=== PATIENT | female | born 1945 | race Caucasian/White ===

== ENCOUNTER → 2022-03-07 06:36 | Outpatient (CLI) | payer MEDICARE, SELFPAY ==
[2022-03-06 20:06] LABS: Basophils # 0.1 K/mm3 (0-0.2); Basophils % 1.2 % (0.1-2.0); Eosinophils # 0.1 K/mm3 (0.0-0.4); Eosinophils % 2.2 % (0.1-12.0); Hemoglobin 11.2 g/dL (12.2-16.2); Lymphocytes # 2.3 K/mm3 (0.7-4.5); Lymphocytes % 44.3 % (10-50); Mean Corpuscular HGB Conc 33.1 g/dL (31.8-35.4); Mean Corpuscular Hemoglobin 28.7 pg (27.0-31.2); Mean Corpuscular Volume 86.7 fl (81-99); Mean Platelet Volume 8.6 fl (7.4-10.4); Monocytes # 0.4 K/mm3 (0.1-1.0); Neutrophils # 2.3 K/mm3 (1.8-7.8); Neutrophils % 45.2 % (37.0-80.0); Platelet Count 208 K/mm3 (142-424); Red Blood Count 3.92 M/mm3 (4.20-5.40); Red Cell Distribution Width 13.9 % (11.5-17.5); White Blood Count 5.1 K/mm3 (4.8-10.8)
[2022-03-06 21:01] LABS: Alanine Aminotransferase 14 U/L (12-78); Albumin/Globulin Ratio 1.4 (1.1-1.8); Alkaline Phosphatase 87 U/L (38-126); Anion Gap 12.5 mEq/L (5-15); Aspartate Amino Transferase 20 U/L (14-36); Bilirubin,Total 0.2 mg/dl (0.2-1.3); Blood Urea Nitrogen 14 mg/dl (7-17); Calcium 9.2 mg/dl (8.4-10.2); Carbon Dioxide 26 mmol/L (22.0-30.0); Chloride 105 mmol/L (98-107); Chol/HDL Ratio 3.9 (1-3.5); Cholesterol 164 mg/dl (140-200); Estimated Glomerular Filt Rate 81 ml/min (>60); GFR (African American) 98 ML/MIN (>60); Globulin 2.9 g/dL (1.3-3.2); Glucose 164 mg/dl (74-100); HDL Cholesterol 42 mg/dl (40-60); Potassium 4.5 mmoL/L (3.5-5.1); Sodium 139 mmol/L (136-145); Total Protein,Serum 6.9 g/dl (6.3-8.2); Triglycerides 156 mg/dl (30-150); VLDL Cholesterol 31 mg/dL (0-40)
[2022-03-06 21:06] LABS: Hemoglobin A1C 5.9 % (4.0-6.0)
[2022-03-06 21:14] LABS: Direct LDL Cholesterol 80.85 mg/dL (100-129)
[2022-03-06 21:34] LABS: Thyroid Stimulating Hormone 1.23 uIU/mL (0.465-4.68)
== END ==
PROVIDERS: PCP Family Medicine; Visit Provider Family Medicine
DX: E11.9 Type 2 diabetes mellitus without complications (principal); E78.5 Hyperlipidemia, unspecified; Z79.84 Long term (current) use of oral hypoglycemic drugs
CPT/HCPCS: 80053; 80061; 83036; 84443; 85025

== ENCOUNTER → 2022-11-15 07:11 | Outpatient (CLI) | payer MEDICARE, SELFPAY ==
[2022-11-15 17:39] LABS: Basophils # 0.1 K/mm3 (0-0.2); Eosinophils # 0.1 K/mm3 (0.0-0.4); Eosinophils % 2.2 % (0.1-12.0); Hematocrit 35.1 % (37.0-47.0); Hemoglobin 11.3 g/dL (12.2-16.2); Lymphocytes # 2.2 K/mm3 (0.7-4.5); Lymphocytes % 46.5 % (10-50); Mean Corpuscular HGB Conc 32.1 g/dL (31.8-35.4); Mean Corpuscular Hemoglobin 29.1 pg (27.0-31.2); Mean Corpuscular Volume 90.9 fl (81-99); Mean Platelet Volume 8.7 fl (7.4-10.4); Monocytes # 0.3 K/mm3 (0.1-1.0); Monocytes % 7.1 % (1.7-9.3); Neutrophils # 2.1 K/mm3 (1.8-7.8); Neutrophils % 43.1 % (37.0-80.0); Platelet Count 221 K/mm3 (142-424); Red Blood Count 3.86 M/mm3 (4.20-5.40); Red Cell Distribution Width 13.5 % (11.5-17.5); White Blood Count 4.8 K/mm3 (4.8-10.8)
[2022-11-15 18:22] LABS: Chloride 102 mmol/L (98-107); Sodium 136 mmol/L (136-145)
[2022-11-15 18:23] LABS: Potassium 4.7 mmoL/L (3.5-5.1)
[2022-11-15 18:25] LABS: Alanine Aminotransferase 13 U/L (12-78); Albumin Level 3.9 g/dl (3.5-5.0); Albumin/Globulin Ratio 1.3 (1.1-1.8); Alkaline Phosphatase 77 U/L (38-126); Anion Gap 10.7 mEq/L (5-15); Aspartate Amino Transferase 18 U/L (14-36); Bilirubin,Total 0.4 mg/dl (0.2-1.3); Blood Urea Nitrogen 19 mg/dl (7-17); Carbon Dioxide 28 mmol/L (22.0-30.0); Estimated Glomerular Filt Rate 97 ml/min (>60); GFR (African American) 117 ML/MIN (>60); Globulin 2.9 g/dL (1.3-3.2); Total Protein,Serum 6.8 g/dl (6.3-8.2)
[2022-11-15 18:26] LABS: Glucose 213 mg/dl (74-100)
[2022-11-15 18:43] LABS: Microalbumin/Creatinine Ratio 11.9
[2022-11-15 18:44] LABS: Creatinine,Urine Random 114 mg/dL (Not Estab.); Hemoglobin A1C 9.9 % (4.0-6.0)
== END ==
PROVIDERS: PCP Family Medicine; Visit Provider Family Medicine
DX: E11.9 Type 2 diabetes mellitus without complications (principal); Z79.84 Long term (current) use of oral hypoglycemic drugs
CPT/HCPCS: 80053; 82043; 82570; 83036; 85025

== ENCOUNTER → 2023-02-27 10:13 | Outpatient (POV) | payer MEDICARE, SELFPAY | PROVIDERS: Visit Provider Specialist/Technologist | DX: Z00.00 Encounter for general adult medical examination without abnormal findings (principal) ==

== ENCOUNTER → 2023-03-14 10:09 | Outpatient (CLI) | payer MEDICARE, BC, SELFPAY ==
--- NOTE | 2023-03-14 10:09 | MR_ITS ---
FINAL REPORT TECHNIQUE: Multiplanar MR without contrast. Thin section imaging through the posterior fossa/internal auditory canals was also obtained. CLINICAL HISTORY: to r/o acoustic neuroma. hearing loss and tinnitus bilateral ears. right ear worse. FINDINGS: Diffusion sequences show no signal abnormality to indicate acute infarct. Scattered periventricular white matter signal changes are seen compatible with moderate chronic ischemic gliotic disease. Moderate generalized atrophy is present. No mass, hemorrhage or edema is seen. Ventricles are normal. Major vascular flow voids are intact. CP angles are unremarkable. 7th and 8th cranial nerve complexes are normal. IMPRESSION: 1. No mass, acute infarct or hydrocephalus 2. Atrophy and chronic ischemic white matter changes Reviewed, Interpreted and Dictated by Bandar Landry MD Transcribed by Rehana Malagon Authenticated and [facility]
== END ==
PROVIDERS: PCP Family Medicine; Visit Provider Nurse Practitioner
DX: H72.91 Unspecified perforation of tympanic membrane, right ear (principal); H91.91 Unspecified hearing loss, right ear
CPT/HCPCS: 70551

== ENCOUNTER 2023-08-23 08:07 | Outpatient (CLI) | payer MEDICARE, BC, SELFPAY ==
[2023-08-23 16:54] LABS: Chloride 106 mmol/L (98-107); Potassium 4.6 mmoL/L (3.5-5.1); Sodium 139 mmol/L (136-145)
[2023-08-23 16:56] LABS: Alanine Aminotransferase 15 U/L (12-78); Aspartate Amino Transferase 22 U/L (14-36); Blood Urea Nitrogen 16 mg/dl (7-17); Estimated Glomerular Filt Rate 81 ml/min (>60); GFR (African American) 98 ML/MIN (>60)
[2023-08-23 16:57] LABS: Albumin Level 4.1 g/dl (3.5-5.0); Albumin/Globulin Ratio 1.5 (1.1-1.8); Alkaline Phosphatase 85 U/L (38-126); Anion Gap 12.6 mEq/L (5-15); Bilirubin,Total 0.5 mg/dl (0.2-1.3); Carbon Dioxide 25 mmol/L (22.0-30.0); Chol/HDL Ratio 4.5 (1-3.5); Cholesterol 190 mg/dl (140-200); Globulin 2.8 g/dL (1.3-3.2); Glucose 192 mg/dl (74-100); HDL Cholesterol 42 mg/dl (40-60); Total Protein,Serum 6.9 g/dl (6.3-8.2); Triglycerides 150 mg/dl (30-150); VLDL Cholesterol 30 mg/dL (0-40)
[2023-08-23 17:04] LABS: Basophils % 0.6 % (0.1-2.0); Eosinophils # 0.1 K/mm3 (0.0-0.4); Eosinophils % 2.3 % (0.1-12.0); Hematocrit 35.4 % (37.0-47.0); Hemoglobin 11.4 g/dL (12.2-16.2); Lymphocytes # 2.1 K/mm3 (0.7-4.5); Lymphocytes % 39.3 % (10-50); Mean Corpuscular HGB Conc 32.3 g/dL (31.8-35.4); Mean Corpuscular Hemoglobin 29.3 pg (27.0-31.2); Mean Corpuscular Volume 90.8 fl (81-99); Mean Platelet Volume 9.1 fl (7.4-10.4); Monocytes # 0.4 K/mm3 (0.1-1.0); Monocytes % 6.9 % (1.7-9.3); Neutrophils # 2.7 K/mm3 (1.8-7.8); Platelet Count 214 K/mm3 (142-424); White Blood Count 5.3 K/mm3 (4.8-10.8)
[2023-08-23 17:08] LABS: Direct LDL Cholesterol 97.34 mg/dL (100-129)
== END 2023-08-23 23:59 ==
LOC: LAB.DROPOF 08-24 08:10
PROVIDERS: PCP Family Medicine; Visit Provider Family Medicine
DX: E11.9 Type 2 diabetes mellitus without complications (principal); Z79.84 Long term (current) use of oral hypoglycemic drugs; Z79.85 Long-term (current) use of injectable non-insulin antidiabetic drugs
CPT/HCPCS: 80053; 80061; 83036; 85025

== ENCOUNTER 2024-01-15 09:28 | Outpatient (CLI) | payer MEDICARE, BC, OTHER, SELFPAY ==
[2024-01-15 16:35] LABS: Basophils % 0.5 % (0.1-2.0); Eosinophils # 0.1 K/mm3 (0.0-0.4); Eosinophils % 2.1 % (0.1-12.0); Hematocrit 33.2 % (37.0-47.0); Hemoglobin 10.4 g/dL (12.2-16.2); Lymphocytes # 2.1 K/mm3 (0.7-4.5); Lymphocytes % 45.2 % (10-50); Mean Corpuscular HGB Conc 31.4 g/dL (31.8-35.4); Mean Corpuscular Hemoglobin 28.2 pg (27.0-31.2); Mean Corpuscular Volume 89.8 fl (81-99); Mean Platelet Volume 8.9 fl (7.4-10.4); Monocytes # 0.3 K/mm3 (0.1-1.0); Monocytes % 6.9 % (1.7-9.3); Neutrophils # 2.1 K/mm3 (1.8-7.8); Neutrophils % 45.2 % (37.0-80.0); Platelet Count 221 K/mm3 (142-424); Red Blood Count 3.69 M/mm3 (4.20-5.40); Red Cell Distribution Width 15.1 % (11.5-17.5); White Blood Count 4.6 K/mm3 (4.8-10.8)
[2024-01-15 17:38] LABS: Hemoglobin A1C 9.9 % (4.0-6.0)
== END 2024-01-15 23:59 | disposition home or self-care (01) ==
LOC: LAB.DROPOF 01-17 09:29
PROVIDERS: PCP Family Medicine; Visit Provider Family Medicine
DX: E11.9 Type 2 diabetes mellitus without complications (principal); Z79.4 Long term (current) use of insulin
CPT/HCPCS: 83036; 85025

== ENCOUNTER 2024-12-18 11:04 | Outpatient (CLI) | payer MEDICARE, BC, SELFPAY | END 2024-12-18 23:59 | disposition home or self-care (01) | LOC: LAB.DROPOF 12-21 11:05 | PROVIDERS: PCP Nurse Practitioner Family; Visit Provider Nurse Practitioner Family | DX: N39.0 Urinary tract infection, site not specified (principal); B96.20 Unspecified Escherichia coli [E. coli] as the cause of diseases classified elsewhere | CPT/HCPCS: 87086; 87088; 87186 ==

== ENCOUNTER 2025-01-27 09:12 | Outpatient (CLI) | payer MEDICARE, BC, SELFPAY ==
[2025-01-27 16:55] LABS: Basophils # 0.1 K/mm3 (0-0.2); Eosinophils # 0.1 Kmm3 (0.0-0.4); Eosinophils % 2.8 % (0.1-12.0); Hemoglobin 8.7 g/dL (12.2-16.2); Immature Granulocytes # 0.01 10^3uL; Immature Granulocytes % 0.2 %; Lymphocytes # 1.9 K/mm3 (0.7-4.5); Lymphocytes % 39.1 % (10-50); Mean Corpuscular HGB Conc 31.1 g/dL (31.8-35.4); Mean Corpuscular Hemoglobin 24.9 pg (27.0-31.2); Mean Platelet Volume 10.3 fl (7.4-10.4); Monocytes # 0.5 K/mm3 (0.1-1.0); Monocytes % 9.3 % (1.7-9.3); Neutrophils # 2.4 K/mm3 (1.8-7.8); Neutrophils % 47.6 % (37.0-80.0); Nucleated Red Blood Cells # 0 10^3/uL; Nucleated Red Blood Cells % 0 %; Platelet Count 228 K/mm3 (142-424); Red Cell Distribution Width-SD 46.2 fL
[2025-01-27 17:07] LABS: Microalbumin/Creatinine Ratio 14.8
[2025-01-27 17:13] LABS: Albumin Level 4.1 g/dl (3.5-5.0); Chloride 106 mmol/L (98-107); Sodium 136 mmol/L (136-145)
[2025-01-27 17:14] LABS: Potassium 5.1 mmoL/L (3.5-5.1)
[2025-01-27 17:16] LABS: Alanine Aminotransferase 15 U/L (12-78); Albumin/Globulin Ratio 1.5 (1.1-1.8); Alkaline Phosphatase 80 U/L (38-126); Anion Gap 10.1 mEq/L (5-15); Aspartate Amino Transferase 22 U/L (14-36); Bilirubin,Total 0.3 mg/dl (0.2-1.3); Blood Urea Nitrogen 18 mg/dl (7-17); Carbon Dioxide 25 mmol/L (22.0-30.0); Cholesterol 209 mg/dl (140-200); Creatinine,Urine Random 74 mg/dL (Not Estab.); Estimated Glomerular Filt Rate 81 ml/min (>60); GFR (African American) 98 ML/MIN (>60); Globulin 2.7 g/dL (1.3-3.2); Iron 58 ug/dL (37-170); Total Protein,Serum 6.8 g/dl (6.3-8.2); Triglycerides 183 mg/dl (30-150); VLDL Cholesterol 37 mg/dL (0-40)
[2025-01-27 17:17] LABS: Calcium 9.3 mg/dl (8.4-10.2); Chol/HDL Ratio 4.2 (1-3.5); Glucose 285 mg/dl (74-100); HDL Cholesterol 50 mg/dl (40-60)
[2025-01-27 17:24] LABS: Total Iron Binding Capacity 380 ug/dL (265-497)
[2025-01-27 17:28] LABS: Direct LDL Cholesterol 95.71 mg/dL (100-129)
[2025-01-27 17:47] LABS: Thyroid Stimulating Hormone 2.55 uIU/mL (0.465-4.68)
[2025-01-27 19:05] LABS: Hepatitis C Ab Qual. W/ RFX NEGATIVE (Negative)
[2025-01-27 19:12] LABS: Hemoglobin A1C 11.4 % (4.0-6.0)
[2025-01-28 04:36] LABS: HIV Combo NEGATIVE (Negative)
[2025-01-28 07:16] LABS: Hepatitis B Surface Antigen Negative (Negative)
--- OUTSIDE RECORDS SUMMARY | 2025-01-28 09:19 | XMS_ITS | Encounter Summary ---
Author Organization [employer] Address [address] [place] [address] Care Team Providers Care Topline Beading Machine Tender Name Role Phone Scott Main MD Primary Care Provider [phone]- [phone] Encounter Details Date Type Department Care Team (Late st Contact Info) Description 02/04/2019 Transcribed Document [facility] [place] [address] [place] [address] ProviderAurea MD [address] [id number] Social History Tobacco Use Types Packs/Day Years Used Date Smoking Tobacco: Never Assessed Comments Unknown Sex and Gender Information Value Date Recorded Sex Assigned at Not on file Legal Sex Female 3:56 PM CDT Gender Identity Not on file Sexual Orientation Not on file documented as of this encounter Miscellaneous Notes * Cerner Conversion Note - Aurea Delgado MD - 02/04/2019 7:40 AM CDT Advance Directive Entered On: 02/04/2019 10:05 EDT Performed On: 02/04/2019 7:40 EDT by DIANNA WITT Chaplain-Non Cert Advance Directive Patient has Advance Directive *Q : No, patient requests information about Advance Directive Patient Given Information about AD : Yes Advance Directive Comment : AD information provided by the endoscopy nursing staff. DIANNA WITT Chaplain-Non Cert - 02/04/2019 10:04 EDT documented in this encounter Plan of Treatment Not on file documented as of this encounter Visit Diagnoses Not on filedocumented in this encounter Care Teams Topline Beading Machine Tender Relationship Specialty Start Date End Date Scott Main MD [address] [place] [address] PCP - General Family Medicine 03/29/24 documented as of this encounter
--- OUTSIDE RECORDS SUMMARY | 2025-01-28 09:19 | XMS_ITS | Encounter Summary ---
Author Organization [employer] Address [address] [place] [address] Care Team Providers Care Accessibility Lift Technician Name Role Phone Scott Main MD Primary Care Provider [phone]- [phone] Encounter Details Date Type Department Care Team (Late st Contact Info) Description 02/04/2019 Transcribed Document [facility] [place] [address] [place] [address] ProviderAurea MD [place] [address] Social History Tobacco Use Types Packs/Day Years Used Date Smoking Tobacco: Never Assessed Comments Unknown Sex and Gender Information Value Date Recorded Sex Assigned at Not on file Legal Sex Female 3:56 PM CDT Gender Identity Not on file Sexual Orientation Not on file documented as of this encounter Miscellaneous Notes * Cerner Conversion Note - Aurea Delgado MD - 02/04/2019 7:33 AM CDT Pre Procedure Adult Entered On: 02/04/2019 7:39 EDT Performed On: 02/04/2019 7:33 EDT by Idalmis Etienne RN Height and Weight, Clinical Dosing Height Source : Stated Height Entry Format : [place] Height, Feet : 5 ft(Converted to: 152 cm, 60 Inch) Height, Inches : 6 Inch(Converted to: 0 ft 6 Inch, 15.24 cm) Clinical Height : 167.64 cm Weight Source : Standing scale Weight Entry Format : [place] Clinical Dosing Weight : 74.09 kg Weight, Pounds : 163 lb Body Surface Area (BSA) : 1.84 m2 Body Mass Index : 26.4 kg/m2 (HI) [place] Body Weight : 59 kg Idalmis Etienne RN - 02/04/2019 7:33 EDT Health Histories Smoking Status : Never (less than 100 in lifetime; none in last 30 days) Smokeless Tobacco Status : Never Idalmis Etienne RN - 02/04/2019 7:33 EDT Social History (As Of: 02/04/2019 07:39:19 EDT) Tobacco: Never (less than 100 in lifetime) Smoking Status. (Last Updated: 02/04/2019 07:29:53 EDT by Idalmis Etienne, RN) Alcohol: Alcohol Use History No. (Last Updated: 02/04/2019 07:30:00 EDT by Idalmis Etienne, RN) Nutrition/Health: Caffeine intake amount: 4 cups coffee/day. (Last Updated: 02/04/2019 07:30:16 EDT by Idalmis Etienne, RN) Infectious Disease History Infectious Disease History : Chicken pox/Shingles, Influenza, Measles, Mumps Fever/Chills Last 48 Hours : No Travel To Regions with Travel Advisories : No Travel Outside [place] Within Last 30 Days : No Contact With Traveler to Advisory Region : No Tuberculosis Symptoms : None Idalmis Etienne RN - 02/04/2019 7:33 EDT Anesthesia/Transfusion History Family History of Anesthesia Reaction : Prior transfusion without reaction Transfusion History : Prior anesthesia without reaction Family History of Anesthesia Reaction : None Idalmis Etienne RN - 02/04/2019 7:33 EDT Functional Assessment Living Situation : Home Patient Lives With : Adult Child/Children, Spouse Current Home Treatments : None Idalmis Etienne RN - 02/04/2019 7:33 EDT Psychosocial History Currently in Unsafe Situation : No Tried to Harm Yourself in the Past? : No Thoughts of Harming/Killing Yourself : No Idalmis Etienne RN - 02/04/2019 7:33 EDT Advance Directive Patient has Advance Directive *Q : No, patient requests information about Advance Directive Patient Given Information about AD : Yes Idalmis Etienne RN - 02/04/2019 7:33 EDT Teaching/Learning Assessment Barriers To Learning : None evident Individuals Taught : Patient Readiness to Learn : Cooperative Baseline Knowledge of Topic : Good Readiness to Learn : Explanation Learning Style Preferences Patient : None Learning Style Preferences Family : None Idalmis Etienne RN - 02/04/2019 7:33 EDT General Info Want Family/Rep/Phys Notified of Admit : No Emergency Contact #1 : Brayan Velasquez Emergency Contact #1 Emergency Contact #1 Relationship : spouse Emergency Contact #2 : na Emergency Contact #2 Phone Number : lety Emergency Contact #2 Relationship : na Primary Language : Cypriot Communication Barrier : None Idalmis Etienne RN - 02/04/2019 7:33 EDT Sleep Apnea Risk Assmt Hx of Obstructive Sleep Apnea Diagnosis : No Snore Loudly : No Tired, Fatigued, or Sleepy During Day : Yes Observed Stopping Breathing During Sleep : No Have/Are Being Treated for Hypertension : Yes BMI Greater Than 35 kg/m2 : No Age over 50 Years Old : Yes Neck Circumference Greater Than 40 cm : No Gender Male : No STOP-BANG Sleep Apnea Risk Level Score : 3 Idalmis Etienne RN - 02/04/2019 7:33 EDT Dequan Scale Dequan Sensory Perception : No impairment Dequan Moisture : Rarely moist Dequan Activity : Walks frequently Dequan Mobility : No limitation Dequan Nutrition : Excellent Dequan Friction and Shear : No apparent problem Dequan Score : 23 Idalmis Etienne RN - 02/04/2019 7:33 EDT Fall Risk Scales ABCs Fall Injury Risk Identification : None QUINTERO Hx Falls Immediate/Within 3 Months : No Quintero Secondary Diagnosis : No QUINTERO Use of Ambulatory Aid : None QUINTERO IV Therapy or IV Access : Yes Quintero Gait/Transferring : Normal, bedrest, immobile Quintero Mental Status : Oriented to own ability Quintero Fall Risk Score : 20 QUINTERO Fall Scale Risk Level : 0-24 Low Risk [place] Fall Interventions : Adequate lighting, Bed in low position, Call device within reach, Personal items within reach, Reinforced to call for assistance before getting out of bed, Room free of clutter/spills, Upper side-rails up, Wheels locked, Wires/Cords secured Idalmis Etienne RN - 02/04/2019 7:33 EDT Valuables and Belongings Valuables and Belongings : Clothing, Personal devices Clothing : Common streetwear Clothing Disposition : Bedside Personal Device Disposition : Bedside Personal Devices : Glasses Idalmis Etienne RN - 02/04/2019 7:33 EDT documented in this encounter Plan of Treatment Not on file documented as of this encounter Visit Diagnoses Not on filedocumented in this encounter Care Teams Accessibility Lift Technician Relationship Specialty Start Date End Date Scott Main MD [address] [place] [address] PCP - General Family Medicine 03/29/24 documented as of this encounter
--- OUTSIDE RECORDS SUMMARY | 2025-01-28 09:19 | XMS_ITS | Referral Summary ---
Author Organization [employer] Address [address] [place] [address] Care Team Providers Care Director Medical Science Name Role Phone Scott Main MD Primary Care Provider +1- [phone] Allergies Active Allergy Reactions Criticality Noted Date Comments Codeine Nausea And Vomiting 03/29/2024 Medications metFORMIN (GLUCOPHAGE-XR ) 500 MG 24 hr tablet Take 1 tablet (500 mg total) by mouth 2 (two) times daily with breakfast and dinner. Active lisinopriL (PRINIVIL,ZEST RIL) 20 MG tablet Take 1 tablet (20 mg total) by mouth daily. Active esomeprazole (NexIUM) 40 MG capsule Take 1 capsule (40 mg total) by mouth daily. Active SITagliptin phosphate (JANUVIA) 100 MG tablet Take 1 tablet (100 mg total) by mouth daily. Active insulin glargine (Lantus Solostar U-100 Insulin) 100 unit/mL (3 mL) InPn Inject 20 Units subcutaneously nightly. Active glipiZIDE (GLUCOTROL XL) 10 MG 24 hr tablet Take 1 tablet (10 mg total) by mouth 2 (two) times daily with breakfast and dinner. Active venlafaxine (EFFEXOR-XR) 75 MG 24 hr capsule Take 1 capsule (75 mg total) by mouth daily. Active Active Problems Problem Noted Date Diagnosed Date Anemia 03/31/2024 03/31/2024 GERD (gastroesophageal reflux disease) 03/31/2024 PUD (peptic ulcer disease) 03/31/202403/31 Severe sepsis 03/29/2024 Hypertension Diabetes mellitus Social History Tobacco Use Types Packs/Day Years Used Date Smoking Tobacco: Never Smokeless Tobacco: Never Tobacco Cessation:Counseling Given: Not Answered Alcohol Use Standard Drinks/Week Comments Never 0 (1 standard drink = 0.6 oz pur e alcohol) Utilities Answer Date Recorded In the past 12 months, has t he electric, gas, oil, or water company threatened to shut off services in your home? No 03/29/2024 Interpersonal Safety Answer Date Record ed How often does anyone, cat burden family and friends, physically hurt you? Never 03/29/2024 How often does anyone, cat burden family and friends, insult or talk down to you? Never 03/29/2024 How often does anyone, cat burden family and friends, threaten you with harm? Never 03/29/2024 How often does anyone, cat burden family and friends, scream or curse at you? Never 03/29/2024 Housing Stability Answer Date Recorded What is your living situation today? I have a [facility] place to live 03/29/[address] you li ve. Do you have problems with any of the following? None of the above 03/29/2024 Food Insecurity Answer Date Recorded Within the past 12 months, y ou worried that your food would run out before you got money to buy more. Never true 03/29/2024 Within the past 12 months, t he food you bought just didn't last and you didn't have money to get more. Never true 03/29/2024 Transportation Needs Answer Date Record ed In the past 12 months, has l ack of reliable transportation kept you from medical appointments, meetings, work or from getting things needed for daily living? No 03/29/2024 Financial Resource Strain Answer Date R ecorded How hard is it for you to pa y for the very basics like food, housing, medical care, and heating? Would you say it is: Very hard 03/30/2024 Employment Answer Date Recorded Do you want help finding or keeping work or a job? I do not need or want help 03/29/2024 Family and Community Support Answer Carlos e Recorded If for any reason you need h elp with day-to-day activities such as bathing, preparing meals, shopping, managing finances, etc., do you get the help you need? I don't need any help 03/29/2024 Feeling Lonely or Isolated 0 03/29 Educational Attainment Answer Date Brian rded Do you speak a language other than Hungarian at [facility]? No 03/29/2024 Do you want help with school or training? For example, starting or completing job training or getting a high school diploma, GED or equivalent. No 03/29/2024 Physical Activity Answer Date Recorded Number of minutes of exercise per week 120 03/29/2024 Alcohol Use Answer Date Recorded 5 or More Drinks Per Day Past 12 Months 0 2024 Depression Answer Date Recorded Calculation of above two rows 0 Stress Answer Date Recorded Stress means a situation in which a person feels tense, restless, nervous, or anxious, or is unable to sleep at night because his or her mind is troubled all the time. Do you feel this kind of stress these days? Somewhat 03/29/2024 Disabilities Answer Date Recorded Because of a physical, menta l, or emotional condition, do you have serious difficulty concentrating, remembering, or making decisions? (5 years or older) No 03/29/2024 Because of a physical, menta l, or emotional condition, do you have difficulty doing errands alone such as visiting a doctor's office or shopping? (15 years or older) No 03/29/2024 Substance Use Answer Date Recorded How many times in the past y ear have you used prescription drugs for non-medical reasons? Never 03/29/2024 How many times in the past year have you used il legal drugs? Never 03/29/2024 Comments Unknown Sex and Gender Information Value Date Recorded Sex Assigned at Not on file Legal Sex Female 3:56 PM CDT Gender Identity Not on file Sexual Orientation Not on file Last Filed Vital Signs Vital Sign Reading Time Taken Comments Blood Pressure 96/74 04/02/2024 3:05 PM EDT Pulse 86 04/02/2024 3:05 PM EDT Temperature 36.9 C (98.4 F) 04/02/2024 3:05 PM EDT Respiratory Rate 16 04/02/2024 3:05 PM EDT Oxygen Saturation 98% 04/02/2024 3:05 PM EDT Inhaled Oxygen Concentration - - Weight 67.1 kg (148 lb) 03/31/2024 9:40 PM EDT Height 167.6 cm (5' 5.98 ) 03/31/2024 9:40 PM ED T Body Mass Index 23.9 03/31/2024 9:40 PM EDT Plan of Treatment Not on file Medical Devices Implanted Type Area Oral And Maxillofacial Surgery Resident Device Identifier Shelf Expiration Date Model / Serial / Lot Stent Uret Percflx 6x24 .038 [id number] - [id number] Implanted:Qty : 1 on 03/31/2024 by Colton Alejandre Jr., MD at [facility] IMPLANTS Left: Ureter [employer]:UROLOGY/GYNE COLOGY 10/21/2026 [id number] / / [id number] Procedures Procedure Name Priority Date/Time Associated Diagnosis Comments HEMOGLOBIN A1C Add-On 03/29/2024 3:19 PM EDT from Last 3 Months or Most Recently Relevant to Health Maintenance Results * (ABNORMAL) Hemoglobin A1c (03/29/2024 3:19 PM EDT) Hemoglobin A1C 10.7(H) 4.2 - 6.3 % 03/29/2024 3:40 PM EDT [facility] Comment: Hemoglobin A1C levels are related to mean glucose during the preceding 2-3 months. Less than 7% demonstrates glycemic control in diabetic patients. Hemoglobin AlC % Suggested Diagnosis > or = 6.5 Diabetic 5.7 - 6.4 Prediabetic <5.7 Non-diabetic eAVG Glucose 260.39 mg/dL 03/29/2024 3:40 PM EDT [facility] Blood Venipuncture / Unknown 03/29/2024 3:19 PM EDT 03/29/2024 3:19 PM EDT us Fernnado Fritz MD LAB BLOOD ORDERABLES Final R esult [facility] [address] [phone] from Last 3 Months or Most Recently Relevant to Health Maintenance Insurance [address] [place] [address] [address] MEDICARE PART A B SUPPL Advance Directives For more information, please contact: [phone] * Full Code (Latest Code Status on File) Date Activated Date Inactivated Comments 03/29/2024 1:17 PM 04/02/2024 6:02 PM Care Teams Director Medical Science Relationship Specialty Start Date End Date Scott Main MD [address] [place] [address] PCP - General Family Medicine 03/29/24
--- OUTSIDE RECORDS SUMMARY | 2025-01-28 09:19 | XMS_ITS | Encounter Summary ---
Author Organization [employer] Address [address] [place] [address] Care Team Providers Care Detective Name Role Phone Scott Main MD Primary Care Provider +1- [phone] Encounter Details Date Type Department Care Team (Late st Contact Info) Description 02/04/2019 Transcribed Document [facility] [place] [facility] [place] [address] ProviderAurea MD [address] [place] [id number] Social History Tobacco Use Types Packs/Day Years Used Date Smoking Tobacco: Never Assessed Comments Unknown Sex and Gender Information Value Date Recorded Sex Assigned at Not on file Legal Sex Female 3:56 PM CDT Gender Identity Not on file Sexual Orientation Not on file documented as of this encounter Miscellaneous Notes * Cerner Conversion Note - Aurea Delgado MD - 02/04/2019 7:18 AM CDT Patient: JAKOB QUINONES Age: 73 years Sex: Female : 1945 Associated Diagnoses: None Author: ASHELY SOTO MD-AZAnnie Basic Information Source of history: Self. Joss Maldonado MD Chief Complaint Screening colonoscopy, family history of colon cancer. History of Present Illness Patient presents today for a screening colonoscopy. Denies any gastrointestinal complaints. Specifically denies rectal bleeding, weight loss, or change in bowel habits. Sister with history of colon cancer over age 50. Denuies ASA. Takes Ibuprofen rarely. Last colonoscopy 08/[address] Ashely Soto, findings: Two sessile polyps in the cecum, measuring 4mm and 6mm,( Tubular adenoma) Single pedunculated polyp in the transverse colon measuring 8mm,( Tubular adenoma) Single sessile polyp in the sigmoid measuring 6mm, ( fragments of mucinous debris and degenerated vegetable matter, no tissue identified), Single pedunculated polyp in the rectum, measuring 1 cm, ( vegetable matter, no tissue) Colon random biopsy: mild non specific chronic inflammation and edema. Histories Past Medical History: Active Diabetes mellitus (922877336) Lupus (103746518) Anemia (491543425) Hypertension (4557283167) Anxiety (51820763) GERD (gastroesophageal reflux disease) (542507220) Resolved h/o DVT (deep venous thrombosis) (828962312): Resolved. Procedure history: No active procedure history items have been selected or recorded. Social History Social & Psychosocial Habits Alcohol 02/04/2019 Alcohol Use History, Social Habits No Nutrition/Health 02/04/2019 Caffeine intake amount: 4 cups coffee/day Tobacco 02/04/2019 Smoking Status Never (less than 100 in l . Family History: Sister with history of colon cancer over age 50. Health Status Allergies: Allergic Reactions (All) Severity Not Documented Codeine- N&v - nausea and vomiting and n&v - nausea and vomiting., No qualifying data available Current medications: (Selected) Inpatient Medications Ordered Normal Saline 1,000 mL: 125 mL/Hr, IntraVENous Documented Medications Documented Januvia 50 mg oral tablet: Tab, Oral, Daily, 0 Refill(s) NexIUM 40 mg oral delayed release capsule: Cap, Oral, Daily, 0 Refill(s) Vitamin D3: 50,000 Int Units, Oral, Weekly, 0 Refill(s) ferrous sulfate 325 mg (65 mg elemental iron) oral delayed release tablet: Tab, Oral, Daily, 0 Refill(s) glipiZIDE 10 mg oral tablet: Tab, Oral, Daily, 0 Refill(s) lisinopril 20 mg oral tablet: Tab, Oral, Daily, 0 Refill(s) metFORMIN 500 mg oral tablet: Tab, Oral, TID, 0 Refill(s) venlafaxine 75 mg oral capsule, extended release: Cap, Oral, Daily, 0 Refill(s), Medications (1) Active Scheduled: (0) Continuous: (1) NaCl 0.9% 1,000 mL 1,000 mL, IntraVENous, 125 mL/Hr PRN: (0) Problem list: All Problems Anemia / SNOMED CT 984023273 / Confirmed Anxiety / SNOMED CT 24803116 / Confirmed At risk for sleep apnea / IMO [id number] / Confirmed Diabetes mellitus / SNOMED CT 908281391 / Confirmed GERD (gastroesophageal reflux disease) / SNOMED CT 925358497 / Confirmed Hypertension / SNOMED CT 1924421726 / Confirmed Lupus / SNOMED CT 971727801 / Confirmed Resolved: h/o DVT (deep venous thrombosis) / SNOMED CT 019356772, Active Problems (7) Anemia Anxiety At risk for sleep apnea Diabetes mellitus GERD (gastroesophageal reflux disease) Hypertension Lupus Review of Systems Constitutional: No fever, No chills, No weight gain, No weight loss. Eye: No recent visual problem, No blurring. Ear/Nose/Mouth/Throat: No dysphagia, No epistaxis, No hoarse voice, No sore throat. Respiratory: No shortness of breath, No cough, No hemoptysis. Cardiovascular: No chest pain, No palpitations, No claudication. Gastrointestinal Negative other than HPI. Genitourinary: No dysuria, No hematuria. Hematology/Lymphatics: No bruising tendency, No bleeding tendency. Endocrine: No excessive thirst, No cold intolerance, No heat intolerance. Musculoskeletal: No joint pain, No muscle pain, No gait disturbance, No joint redness. Integumentary: No rash, No pruritus. Neurologic: No confusion, No dizziness, No headache, No seizure. Psychiatric: No anxiety, No depression. the rest of the 10 system review is negative Physical Examination VS/Measurements Vitals Signs (last 24 hrs) Last Charted Minimum Maximum Temp 98.4 (FEB 04 07:00) 98.4 (FEB 04 07:00) 98.4 (FEB 04 07:00) Mon HR 78 (FEB 04 07:00) 78 (FEB 04 07:00) 78 (FEB 04 07:00) Resp Rate 18 (FEB 04 07:00) 18 (FEB 04 07:00) 18 (FEB 04 07:00) SBP H 192 (FEB 04 07:00) H 192 (FEB 04 07:00) H 192 (FEB 04:00) DBP 85 (FEB 04 07:00) 85 (FEB 04 07:00) 85 (FEB 04 07:00) SpO2 99 (FEB 04 07:) 99 (FEB 04 07:00) 99 (FEB 04:) General: No acute distress. Appearance: Well nourished. Eye: Pupils are equal, round and reactive to light, Extraocular movements are intact, Normal conjunctiva. Sclera: Both eyes, Within normal limits. HENT: Normocephalic, Normal hearing, Oral mucosa is moist. Nose: Both nostrils, Within normal limits, Patent. Mouth: pink. Neck: Supple, Non-tender, No carotid bruit, No jugular venous distention. Respiratory: Lungs are clear to auscultation, Respirations are non-labored, Breath sounds are equal. Pattern: Regular. Cardiovascular: Normal rate, Regular rhythm, No murmur, No gallop, No edema. Arterial pulses: Bilateral, Dorsalis pedis, Within normal limits. Gastrointestinal: Soft, Non-tender, Non-distended, Normal bowel sounds, No organomegaly. Abdomen: Liver ( Within normal limits ). Lymphatics: Lymphatic exam: Bilateral, Cervical chain, Inguinal, Within normal limits. Musculoskeletal: Normal range of motion, Normal strength, No tenderness, No deformity, Normal gait. Integumentary: Warm, Dry, [place], No rash. Integumentary exam: Face, Chest, Arm, Abdomen, Leg. Neurologic: Alert, Oriented, No focal deficits. Orientation: To person, To place, To time. Psychiatric: Cooperative, Appropriate mood & affect, Normal judgment. Review / Management Results review: No qualifying data available. Impression and Plan Colon screening. Proceed with colonoscopy. Risks including that of bleeding, perforation, splenic injury, and missed lesion have been discussed with patient who verbalizes understanding and agrees to proceed. Further recommendations dong be based on the above findings. Family history of colon cancer. Scribed by Rui Nathan for Dr. Ashely Soto. documented in this encounter Plan of Treatment Not on file documented as of this encounter Visit Diagnoses Not on filedocumented in this encounter Care Teams Detective Relationship Specialty Start Date End Date Scott Main MD [address] [place] [address] PCP - General Family Medicine 03/29/24 documented as of this encounter
--- OUTSIDE RECORDS SUMMARY | 2025-01-28 09:19 | XMS_ITS | Encounter Summary ---
Author Organization [employer] Address [address] [facility] [place] [address] Care Team Providers Care Surgical Scrub Tech Name Role Phone Scott Main MD Primary Care Provider +1- [phone] Encounter Details Date Type Department Care Team (Late st Contact Info) Description 02/04/2019 Transcribed Document [facility] [place] [address] [place] [address] ProviderAurea MD [facility] [place] [address] Social History Tobacco Use Types Packs/Day Years Used Date Smoking Tobacco: Never Assessed Comments Unknown Sex and Gender Information Value Date Recorded Sex Assigned at Not on file Legal Sex Female 3:56 PM CDT Gender Identity Not on file Sexual Orientation Not on file documented as of this encounter Miscellaneous Notes * Cerner Conversion Note - Aurea Delgado MD - 02/04/2019 8:57 AM CDT [address] [address] JAKOB QUINONES :1945 Visit Time:02/04/2019 What to do next Your Diagnosis Screening for colon cancer Encounter for observation for other suspected diseases and conditions ruled out, Encounter for observation for other suspected diseases and conditions ruled out Instructions From Your Care Team Diet after Discharge: Resume usual diet as tolerated, Do not drink any alcoholic beverages, Drink at least 8-10 glasses of water per day Fluid Restriction after Discharge: _ Activity after Discharge: As tolerated, Rest and relax today, No strenuous activity Lifting Restrictions: _ Weight Bearing: _ Bedrest: _ Driving after Discharge: Do not drive May Return to Work/School: Showering/Bathing: _, _ Notify Provider of: Call for any problems or questions Wound/Incision Care after Discharge: _, _ Medical Equipment for Home Use: Home Health Services: Community Services: Follow-Up Appointments Follow Up with MAYTE HALL MD-GAE When Within As needed, only if needed Comments Repeat colonoscopy in five years. Where: [address] [facility] [address] [place] [id number]- Medications What How Much When Instructions Next Dose cholecalciferol (Vitamin D3) 50,000 International Units Oral Weekly esomeprazole (NexIUM 40 mg oral delayed release capsule) Oral Every Day ferrous sulfate (ferrous sulfate 325 mg (65 mg elemental iron) oral delayed release tablet) Oral Every Day glipiZIDE (glipiZIDE 10 mg oral tablet) Oral Every Day lisinopril (lisinopril 20 mg oral tablet) Oral Every Day metFORMIN (metFORMIN 500 mg oral tablet) Oral Three Times A Day SITagliptin (Januvia 50 mg oral tablet) Oral Every Day venlafaxine (venlafaxine 75 mg oral capsule, extended release) Oral Every Day Take your medications faithfully. Do NOT skip medication. Do NOT stop taking medications without the direction of a physician. Carry a list of your medications with you at all times, and take this medication list with you to your first follow up visit. Report any side effects. Avoid herbal remedies unless discussed with your physician. As part of your treatment plan, your physician may have prescribed a limited course of a controlled substance. This medication may be given to help people with moderate or severe pain or for other medical conditions, but there are risks involved with treatment. Common side effects may include nausea, constipation, drowsiness, sweating, itching, dry mouth, and rash. More serious side effects may include cognitive and motor impairment, like problems with thinking, concentrating, alertness, and movement (e.g. slowed reflexes), and driving and operating heavy machinery can be dangerous. It is important for you to talk to your physician if you have these side effects or questions. These controlled substances can produce physical dependence and be habit-forming if taken for an extended period of time, which means that the body has gotten used to them and may experience withdrawal symptoms if they are abruptly stopped. Withdrawal symptoms can include runny nose, sweating, goose bumps, diarrhea, abdominal cramping, rapid heartbeat, difficulty sleeping, and nervousness. Please dispose of unused and medications per pharmacy guidance. Education Materials Colonoscopy, Adult, Care After This sheet gives you information about how to care for yourself after your procedure. Your health care provider may also give you more specific instructions. If you have problems or questions, contact your health care provider. What can I expect after the procedure? After the procedure, it is common to have: ??? A small amount of blood in your stool for 24 hours after the procedure. ??? Some gas. ??? Mild abdominal cramping or bloating. Follow these instructions at home: General instructions ??? For the first 24 hours after the procedure: ? Do not drive or use machinery. ? Do not sign important documents. ? Do not drink alcohol. ? Do your regular daily activities at a slower pace than normal. ? Eat soft, eozb-aa-jbzkiv foods. ? Rest often. ??? Take impy-oxj-qbmzupv or prescription medicines only as told by your health care provider. ??? It is up to you to get the results of your procedure. Ask your health care provider, or the department performing the procedure, when your results will be ready. Relieving cramping and bloating ??? Try walking around when you have cramps or feel bloated. ??? Apply heat to your abdomen as told by your health care provider. Use a heat source that your health care provider recommends, such as a moist heat pack or a heating pad. ? Place a towel between your skin and the heat source. ? Leave the heat on for 20???30 minutes. ? Remove the heat if your skin turns bright red. This is especially important if you are unable to feel pain, heat, or cold. You may have a greater risk of getting burned. Eating and drinking ??? Drink enough fluid to keep your urine clear or pale yellow. ??? Resume your normal diet as instructed by your health care provider. Avoid heavy or fried foods that are hard to digest. ??? Avoid drinking alcohol for as long as instructed by your health care provider. Contact a health care provider if: ??? You have blood in your stool 2???3 days after the procedure. Get help right away if: ??? You have more than a small spotting of blood in your stool. ??? You pass large blood clots in your stool. ??? Your abdomen is swollen. ??? You have nausea or vomiting. ??? You have a fever. ??? You have increasing abdominal pain that is not relieved with medicine. This information is not intended to replace advice given to you by your health care provider. Make sure you discuss any questions you have with your health care provider. Document Released: 03/19/2005 Document Revised: 04/29/2017 Document Reviewed: 10/16/2016 [employer] Interactive Patient Education ?? 2018 [employer]. Colon Polyps Introduction Polyps are tissue growths inside the body. Polyps can grow in many places, including the large intestine (colon). A polyp may be a round bump or a mushroom-shaped growth. You could have one polyp or several. Most colon polyps are noncancerous (benign). However, some colon polyps can become cancerous over time. What are the causes? The exact cause of colon polyps is not known. What increases the risk? This condition is more likely to develop in people who: ??? Have a family history of colon cancer or colon polyps. ??? Are older than 50 or older than 45 if they are . ??? Have inflammatory bowel disease, such as ulcerative colitis or Crohn disease. ??? Are overweight. ??? Smoke cigarettes. ??? Do not get enough exercise. ??? Drink too much alcohol. ??? Eat a diet that is: ? High in fat and red meat. ? Low in fiber. ??? Had childhood cancer that was treated with abdominal radiation. What are the signs or symptoms? Most polyps do not cause symptoms. If you have symptoms, they may include: ??? Blood coming from your rectum when having a bowel movement. ??? Blood in your stool. The stool may look dark red or black. ??? A change in bowel habits, such as constipation or diarrhea. How is this diagnosed? This condition is diagnosed with a colonoscopy. This is a procedure that uses a lighted, flexible scope to look at the inside of your colon.How is this treated? Treatment for this condition involves removing any polyps that are found. Those polyps will then be tested for cancer. If cancer is found, your health care provider will talk to you about options for colon cancer treatment. Follow these instructions at home: Diet ??? Eat plenty of fiber, such as fruits, vegetables, and whole grains. ??? Eat foods that are high in calcium and vitamin D, such as milk, cheese, yogurt, eggs, liver, fish, and broccoli. ??? Limit foods high in fat, red meats, and processed meats, such as hot dogs, sausage, mayorga, and lunch meats. ??? Maintain a healthy weight, or lose weight if recommended by your health care provider. General instructions ??? Do notsmoke cigarettes. ??? Do notdrink alcohol excessively. ??? Keep all follow-up visits as told by your health care provider. This is important. This includes keeping regularly scheduled colonoscopies. Talk to your health care provider about when you need a colonoscopy. ??? Exercise every day or as told by your health care provider. Contact a health care provider if: ??? You have new or worsening bleeding during a bowel movement. ??? You have new or increased blood in your stool. ??? You have a change in bowel habits. ??? You unexpectedly lose weight. This information is not intended to replace advice given to you by your health care provider. Make sure you discuss any questions you have with your health care provider. Document Released: 05/01/2005 Document Revised: 01/10/2017 Document Reviewed: 06/25/2016 ?? 2017 [employer] Emergency Awareness and Preventative Care STROKE is an EMERGENCY Every Minute Counts Act FAST and Check for these signs: FACE Does the face look uneven? ARM Does one arm drift down? SPEECH Does their speech sound strange? TIME Call at any sign of stroke Stroke Risk Factors Atrial Fibrillation (irregular heartbeat) Diabetes Family history of stroke Heart Disease Heavy alcohol use High Blood Pressure High Cholesterol Physical inactivity and obesity Smoking Cigarette Smoking The facts are clear, cigarette smoking will shorten your life. Smoking can cause many illnesses along the way. As a healthcare provider, we recommend that you stop smoking. Assistance with quitting is available by contacting 2-523-TEQT-NOW. This is a free resource providing counseling, support, and referral. Or you may contact your personal physician. National Suicide Prevention Lifeline: The National Suicide Prevention Lifeline is a national network of local crisis centers that provides free and confidential emotional support to people in suicidal crisis or emotional distress 24 hours a day, 7 days a week. Don't Wait! Stop a Heart Attack Before it Starts What is a heart attack? A heart attack is damage or to a part of the heart from severely decreased or lack of blood flow to the heart. Over time, arteries can become narrow from the buildup of fat and cholesterol, which is called plaque. The plaque can rupture causing a blood clot to form. When the blood clot forms, the artery can become severely narrowed or completely blocked, causing a heart attack. Heart attack is the leading cause of in the [place]. 85% of muscle damage occurs within the first 2 hours. Delay in the recognition of heart attack symptoms increases the chances of . Know the early symptoms of a heart attack: Nausea Feeling of fullness in chest Jaw Pain Pain that travels down one or both arms Fatigue/being tired Anxiety Back Pain Chest pressure, squeezing, or discomfort Shortness of breath Sweating, or a cold sweat Feeling of impending doom There are unusual signs of a heart attack, too! Women, the elderly, and diabetics may present with atypical symptoms: Fainting/dizziness Weakness Confusion Risk Factors for a Heart Attack Some heart disease risk factors, such as age and family history, cannot be changed. Others, like smoking and lack of exercise, can be changed. Smoking High Cholesterol High Blood Pressure Family History Obesity Age Gender (Males are at higher risk) Lack of Exercise Diabetes Diet Stress Excessive Alcohol Intake If you or someone you know is experiencing the signs and symptoms of a heart attack, DON???T DELAY. Call immediately and seek help. If someone collapses, perform CPR! Do not attempt to drive if you are having symptoms of heart attack. Hands-Only CPR Why Hands-Only CPR? Hands-Only CPR has been shown to be as effective as conventional CPR for cardiac arrests that occur outside of a hospital. Survival depends on immediately receiving CPR from someone nearby. How do you perform Hands-Only CPR? There are two easy steps: Call if you see a teen or adult collapse Push hard and fast in the center of the chest at a beat of 100 beats per minute. Save a life! 4 WAYS TO GET AHEAD OF SEPSIS SEPSIS is a MEDICAL EMERGENCY. Time matters! Infections put you and your family at risk for a life-threatening condition called sepsis. Sepsis is the body's extreme response to an infection. It is life-threatening, and without timely treatment, sepsis can rapidly lead to tissue damage, organ failure, and . Sepsis happens when an infection you already have-in your skin, lungs, urinary tract or somewhere else-triggers a chain reaction throughout your body. 1 PREVENT INFECTIONS Take good care of chronic conditions. Talk to your doctor about getting the recommended vaccines. 2 PRACTICE GOOD HYGIENE Wash your hands frequently. Keep cuts or open sores clean and covered until they are healed. 3 KNOW THE SYMPTOMS Confusion or disorientation Shortness of breath High heart rate Fever, shivering, or feeling very cold Extreme pain or discomfort Clammy or sweaty skin 4 ACT FAST Get medical care IMMEDIATELY if you suspect sepsis or if you have an infection that is not getting better or is getting worse. To learn more about sepsis and how to prevent infections, visit www.cdc.gov/sepsis. Patient Portal Reminder: Be sure to sign up for the [facility] patient portal, which gives you 11/03 access to your medical information ??? including these discharge instructions ??? using your computer, smartphone, or tablet. Just go to wavecatch to get started. Questions? Call . Test Results Laboratory or Other Results This Visit (last charted value for your 02/04/2019 visit) General Chemistry 02/04/19 08:47:00 Glucose POC2: 147 mg/dL -- Normal range between ( 70 and 110 ) Patient Name:JAKOB QUINONES Lenny I have received this information and was given the opportunity to ask questions. Patient/Industrial Laborer Name: Patient/Industrial Laborer Signature: Relationship to Patient: Clinician/Hospital Industrial Laborer Signature: Date: Electronically signed by Braulio, [facility] Conversion Hand Sign Writer Cerner at 12/04/2022 4:56 PM CDT documented in this encounter Plan of Treatment Not on file documented as of this encounter Visit Diagnoses Not on filedocumented in this encounter Care Teams Surgical Scrub Tech Relationship Specialty Start Date End Date Scott Main MD [address] [place] [id number] PCP - General Family Medicine 03/29/24 documented as of this encounter
--- OUTSIDE RECORDS SUMMARY | 2025-01-28 09:19 | XMS_ITS | Encounter Summary ---
Author Organization [facility] [email or web address] Address [address] [place] [address] Care Team Providers Care Casting Machine Operator Name Role Phone Scott Main MD Primary Care Provider +1- [phone] Encounter Details Date Type Department Care Team (Late st Contact Info) Description 02/04/2019 Transcribed Document [facility] [place] [facility] [place] [address] ProviderAurea MD [facility] [place], [place] [id number] Social History Tobacco Use Types Packs/Day Years Used Date Smoking Tobacco: Never Assessed Comments Unknown Sex and Gender Information Value Date Recorded Sex Assigned at Not on file Legal Sex Female 3:56 PM CDT Gender Identity Not on file Sexual Orientation Not on file documented as of this encounter Miscellaneous Notes * Cerner Conversion Note - Aurea Delgado MD - 02/04/2019 8:05 AM CDT [facility] PACU Summary Primary Physician: MAYTE HALL MD-GAE Finalized Date/Time: 02/04/19 09:07:45 Pt. Name: JAKOB QUINONES/Sex: 1945 Female Med Rec #: [id number] Physician: MAYTE HALL MD-GAE Financial #: [id number] Pt. Type: O Room/Bed: EEN/2 Admit/Disch: 02/04/19 06:46:00 - Institution: [facility] PACU Case Times Entry 1 In PACU I 02/04/19 08:36:00 Ready for PACU 02/04/19 09:02:00 Discharge Discharge from PACU 02/04/19 09:07:00 I [facility] PACU Case Times Audit 02/04/19 09:07:44 Credit Risk Analytics Manager: ESTEBAN Modifier: [email or web address] <+> 1 Ready for PACU Discharge <+> 1 Discharge from PACU I Finalized By: Karla Garcia Rn Document Signatures Signed By: Karla Garcia Rn 02/04/19 09:07 documented in this encounter Plan of Treatment Not on file documented as of this encounter Visit Diagnoses Not on filedocumented in this encounter Care Teams Casting Machine Operator Relationship Specialty Start Date End Date Scott Main MD [address] [place] [address] PCP - General Family Medicine 03/29/24 documented as of this encounter
--- OUTSIDE RECORDS SUMMARY | 2025-01-28 09:19 | XMS_ITS | Encounter Summary ---
Author Organization [employer] Address [address] [place] [address] Care Team Providers Care Screening Representative Name Role Phone Scott Main MD Primary Care Provider +1- [phone] Encounter Details Date Type Department Care Team (Late st Contact Info) Description 02/04/2019 Transcribed Document [facility] [place] Medicine [address] [place] [address] ProviderAurea MD [facility] [place], [place] [id number] Social History Tobacco Use Types Packs/Day Years Used Date Smoking Tobacco: Never Assessed Comments Unknown Sex and Gender Information Value Date Recorded Sex Assigned at Not on file Legal Sex Female 3:56 PM CDT Gender Identity Not on file Sexual Orientation Not on file documented as of this encounter Miscellaneous Notes * Cerner Conversion Note - Aurea Delgado MD - 02/04/2019 7:39 AM CDT Spiritual Care Assessment Entered On: 02/04/2019 10:05 EDT Performed On: 02/04/2019 7:39 EDT by DIANNA WITT Chaplain-Non Cert General Information Initial Visit : Yes Referred by : Nurse Ministry Provided to : Patient DIANNA WITT Chaplain-Non Cert - 02/04/2019 10:05 EDT Interventions Advance Directive Information Provided : Yes Advance Directive Comment : AD information provided by the endoscopy nursing staff. DIANNA WITT Chaplain-Non Cert - 02/04/2019 10:05 EDT Electronically signed by Arcenio Ramsey Conversion Utilization Management Manager Cerner at 12/04/2022 4:59 PM CDT documented in this encounter Plan of Treatment Not on file documented as of this encounter Visit Diagnoses Not on filedocumented in this encounter Care Teams Screening Representative Relationship Specialty Start Date End Date Scott Main MD [address] [place] [address] PCP - General Family Medicine 03/29/24 documented as of this encounter
--- OUTSIDE RECORDS SUMMARY | 2025-01-28 09:19 | XMS_ITS | Encounter Summary ---
Author Organization [employer] Address [address] [place] [address] Care Team Providers Care Mid Level Game Designer Name Role Phone Scott Main MD Primary Care Provider +1- [phone] Encounter Details Date Type Department Care Team (Late st Contact Info) Description 02/04/2019 Transcribed Document [facility] [place] Family Medicine [address] [place] [address] ProviderAurea MD [address] [place], [place] [address] Social History Tobacco Use Types Packs/Day Years Used Date Smoking Tobacco: Never Assessed Comments Unknown Sex and Gender Information Value Date Recorded Sex Assigned at Not on file Legal Sex Female 3:56 PM CDT Gender Identity Not on file Sexual Orientation Not on file documented as of this encounter Miscellaneous Notes * Cerner Conversion Note - Aurea Delgado MD - 02/04/2019 8:56 AM CDT Patient Education Materials Follows: Colon Polyps Introduction Polyps are tissue growths [...] is more likely to develop in people who:??? Have a family history of colon cancer or colon polyps. ??? Are older than 50 or older than 45 if they are . ??? Have inflammatory bowel disease, such as ulcerative colitis or Crohn disease. ??? Are overweight. ??? Smoke cigarettes. ??? Do not get enough exercise. ??? Drink too much alcohol. ??? Eat a diet that is:? High in fat and red meat. ? Low in fiber. ??? Had childhood cancer that was treated with abdominal radiation. What are the signs or symptoms? Most polyps do not cause symptoms. If you have symptoms, they may include: ??? Blood coming from your rectum when having a bowel movement. ??? Blood in your stool.?The stool may look dark red or black. [...] cancer treatment. Follow these instructions at home: Diet??? Eat plenty of fiber, such as fruits, [...] recommended by your health care provider. General instructions??? Do notsmoke cigarettes. ??? Do notdrink alcohol [...] 05/01/2005 Document Revised: 01/10/2017 Document Reviewed: 06/25/2016 ? 2017 Elsevier Radiology Colonoscopy, Adult, Care After This sheet gives [...] slower pace than normal. ? Eat soft, bktf-ny-vmqrwm foods. ? Rest often. ??? Take txfe-agd-ymhvjiq or prescription medicines only as told by [...] source. ? Leave the heat on for 20?30 minutes. ? Remove the heat if your [...] ??? You have blood in your stool 2?3 days after the procedure. Get help right [...] 03/19/2005 Document Revised: 04/29/2017 Document Reviewed: 10/16/2016 [employer] Interactive Patient Education ? 2018 [email or web address]. Electronically signed by Arcenio Ramsey Conversion Quality Improvement Specialist Cerner at 12/04/2022 4:40 PM CDT documented in this encounter Plan of Treatment Not on file documented as of this encounter Visit Diagnoses Not on filedocumented in this encounter Care Teams Mid Level Game Designer Relationship Specialty Start Date End Date Scott Main MD [address] [place] [address] PCP - General Family Medicine 03/29/24 documented as of this encounter
--- OUTSIDE RECORDS SUMMARY | 2025-01-28 09:19 | XMS_ITS | Encounter Summary ---
Author Organization [facility] Address [address] [place] [address] Care Team Providers Care Nascar Pit Crew Person Name Role Phone Scott Main MD Primary Care Provider [phone] Encounter Details Date Type Department Care Team (Late st Contact Info) Description 02/04/2019 Transcribed Document [facility] Family Medicine [facility] [place] [address] ProviderAurea MD [facility] [place], [place] [id number] Social History Tobacco Use Types Packs/Day Years Used Date Smoking Tobacco: Never Assessed Comments Unknown Sex and Gender Information Value Date Recorded Sex Assigned at Not on file Legal Sex Female 3:56 PM CDT Gender Identity Not on file Sexual Orientation Not on file documented as of this encounter Miscellaneous Notes * Cerner Conversion Note - Aurea Delgado MD - 02/04/2019 8:00 AM CDT [facility] PreOp Summary Primary Physician: MAYTE HALL MD-GAE Finalized Date/Time: 02/04/19 07:45:42 Pt. Name: JAKOB QUINONES/Sex: 1945 Female Med Rec #: [id number] Physician: MAYTE HALL MD-GAE Financial #: [id number] Pt. Type: O Room/Bed: EEN/2 Admit/Disch: 02/04/19 06:46:00 - Institution: [facility] PreOp Case Times Entry 1 In Preop 02/04/19 07:16:00 Ready for Holding n/a Room Patient Ready for 02/04/19 07:45:00 Surgery Patient Out of Preop 02/04/19 07:45:00 Patient Out of n/a Holding Room [facility] PreOp Case Times Audit 02/04/19 07:45:33 Police Justice: LUCY Modifier: LUCY <+> 1 Patient Out of Preop <+> 1 Patient Ready for Surgery Finalized By: Idalmis Etienne RN Document Signatures Signed By: Idalmis Etienne RN 02/04/19 07:45 documented in this encounter Plan of Treatment Not on file documented as of this encounter Visit Diagnoses Not on filedocumented in this encounter Care Teams N[employer]ar Pit Crew Person Relationship Specialty Start Date End Date Scott Main MD [address] [place] [address] PCP - General Family Medicine 03/29/24 documented as of this encounter
--- OUTSIDE RECORDS SUMMARY | 2025-01-28 09:19 | XMS_ITS | Clinical Summary ---
Author Organization [facility] Address [address] [place] [address] Phone Care Team Providers Care Cash Register Repairer Name Role Phone Lucia Stockton Unavailable Unavailable Conditions or Problems Problem Name Problem Code Onset Date Status Entry Date Provider Comment Standard Description Annotate Leg edema, left 661491782 (SNOMED CT) 04/09 Active 04/09 Nas Azul MD Edema of lower extremity Hydrouretero nephrosis 57704858 (SNOMED CT) 04/07 Active 04/07 Yamileth Davy Hydroureteronep hrosis Acute Pyelonephrit is 19687772 (SNOMED CT) 04/07 Active 04/07 Yamileth Davy Acute pyelonephritis Neutrophilic leukemoid reaction D72.823 (ICD-10-CM) 04/07 Active 04/07 Yamileth Davy Leukemoid reaction E. Coli sepsis A41.51 (ICD-10-CM) 04/07 Active 04/07 Yamileth Davy Sepsis due to Escherichia coli [E. coli] Acute renal failure with tubular necrosis 623840558244 101 (SNOMED CT) 04/07 Active 04/07 Yamileth Davy Acute renal failure due to tubular necrosis DM Type II E11.9 (ICD-10-CM) 04/07 Active 04/07 Yamileth Davy Type 2 diabetes mellitus without complications Benign Essential Hypertension 04112661 (SNOMED CT) 04/07 Active 04/07 Yamileth Davy Benign hypertension Medications Medication Instructions Start Date Stop Date Generic Name [facility] Provider JANUVIA 100 MG TABS once a day sitagliptin phosphate 07683557768 Lucia Mahin OZEMPIC (0.25 OR 0.5 MG/DOSE) 2 MG/3ML SOPN once a week semaglutide 75083362193 Lucia morales NEXIUM 20 MG CPDR 1 capsule once a day esomeprazole magnesium 26027265117 Lucia Stockton LEVOFLOXACIN 750 MG TABS Take 1 tablet by mouth once a day take around the time of urologic procedure in the future levofloxacin 17159532078 Nas Azul MD VENLAFAXINE HCL ER 75 MG [id number] Take 1 capsule (75 mg total) by mouth daily. venlafaxine 04489892015 QIE qieuser SITAGLIPTIN 100 MG TABS Take 1 tablet (100 mg total) by mouth daily. sitagliptin 09647906169 QIE qieuser METFORMIN HCL ER 500 MG [id number] Take 1 tablet (500 mg total) by mouth 2 (two) times daily with breakfast and dinner. metformin (glucophage xr) 80575637056 QIE qieuser LISINOPRIL 20 MG TABS Take 1 tablet (20 mg total) by mouth daily. lisinopril 78265909703 QIE qieuser LEVOFLOXACIN 750 MG TABS Take 1 tablet (750 mg total) by mouth daily for 11 days. levofloxacin 20980375891 QIE qieuser LANTUS SOLOSTAR 100 UNIT/ML SOPN Inject 20 Units subcutaneously nightly. insulin glargine 42402408863 QIE qieuser GLIPIZIDE ER 10 MG [id number] Take 1 tablet (10 mg total) by mouth 2 (two) times daily with breakfast and dinner. glipizide 24346524949 QIE qieuser ESOMEPRAZOLE MAGNESIUM 40 MG CPDR Take 1 capsule (40 mg total) by mouth daily. esomeprazole magnesium 83542695289 QIE qieuser Medications Administered No information available. Allergies, Adverse Reactions, Alerts Allergy Name Reaction Description Start Date Severity Statu s Provider CODEINE Nausea And Vomiting Mild Active Ruthy Minor Results Date Name Value Unit Range Flag Description Lab Report: CBC WITH AUTO DI FFERENTIAL IMMATUREGRAN 0.05 10*3/MM3 0.00-0.05 Immature granulocytes [#/volume] in Blood BASO# 0.04 10*3/mm3 0.00-0.20 Basophils [#/volume] in Blood EOS ABSLT 0.10 10*3/uL 0.00-0.40 Eosinophi ls [#/volume] in Blood MONOSCT AUTO 0.68 10*3/uL 0.10-0.90 Monocy mariel [#/volume] in Blood by Automated count LYMPHCT AUTO 1.89 10*3/mm3 0.70-3.10 Lymph ocytes [#/volume] in Blood by Automated count ABS NEUTROPH 2.55 10*3/uL 1.70-7.00 Neutro phils [#/volume] in Blood IMM GRANU % 0.9 % 0.0-0.5 H Immature granulocytes/100 leukocytes in Blood % EOS AUTO 1.9 % 0.3-6.2 Eosinophil s/100 leukocytes in Blood by Automated count MONOCYTE % 12.8 % 5.0-12.0 H Monocytes /100 leukocytes in Blood by Automated count LYMPHOCY BF 35.6 % 19.6-45.3 lymphoc ytes as percent of body fluid leukocytes NEUTROP BF 48.0 % 42.7-76.0 Neutroph ils/100 leukocytes in Body fluid PLATELETS 262 10*3/mm3 140-450 Platelets [#/volume] in Blood by Automated count RDW_ 16.0 12.3-15.4 H RDW, no uni ts MCHC 31.9 G/DL 31.5-35.7 MCHC [Mass/ volume] by Automated count MCH 27.2 pg 26.6-33.0 MCH [Entiti c mass] by Automated count MCV 85.1 fL 79.0-97.0 MCV [Entiti c volume] by Automated count HCT 28.5 % 34.0-46.6 L Hematocrit [Volume Fraction] of Blood by Automated count HGB 9.1 g/dL 12.0-15.9 L Hemoglobin [Mass/volume] in Blood RBC 3.35 10*6/mm3 3.77-5.28 L Erythrocyt es [#/volume] in Blood by Automated count WBC 5.31 10*3/mm3 3.40-10.80 Leukocyte s [#/volume] in Blood by Automated count Lab Report: BASIC METABOLIC PANEL ANIONGAP 9.0 mmol/L 5.0-15.0 anion gap, serum BUN/CREAT 19.5 7.0-25.0 Urea nitrogen/Creatinin e [Mass Ratio] in Serum or Plasma CALCIUM 9.0 mg/dL 8.6-10.5 Calcium [Moles/volume] in Serum or Plasma CO2 25.0 mmol/L 22.0-29.0 Carbon diox cinthia, total [Moles/volume] in Venous blood CHLORIDE 102 mmol/L 98-107 Chloride [Moles/volume] in Serum or Plasma POTASSIUM 4.4 mmol/L 3.5-5.2 Potassium [Moles/volume] in Serum or Plasma SODIUM 136 mmol/L 136-145 Sodium [Moles/volume] in Serum or Plasma CREATININE 0.82 mg/dL 0.57-1.00 Creatini ne [Mass/volume] in Serum or Plasma BUN 16 mg/dL 8-23 Urea nitrogen [Mass/volume] in Serum or Plasma GLUCOSE SER 269 mg/dL 65-99 H Glucose [Mass/volume] in Serum or Plasma Office Visit: Office Visit: rm 6 HFU ORALTOBACUSE Never Tobacco smoking status SMOK STATUS Never smoker Toba tobacco sorter smoking status Lab Report: DUPLEX VENOUS LO WER EXTREMITY BILATERAL CAR NICOL-JULIANO-mauriliok No past medical history on file. GE use only - fo r Link[employer] import when terms are not otherwise specified Chart Maintenance: Medicatio n List Update MEDS REVIEW Done Documenta tion of current medications (procedure) Plan of Care Type Date Detail Referral US-Venous Dopple r Lower Extremity Pending order CBC with Differe ntial Pending order BMP Procedures Code Procedure Name Date Entry Date [id number]-84049 US-Venous Doppler Lower Extremity [id number] CBC with Differential 2023 CPT-39242 BMP Vital Signs Date Name Value Unit Description BMI (Body Mass Index) 24.43 kg/m2 Bod y Mass Index (Ratio) Body Temperature 98.1 [degF] temperat ure E&M BP Diastolic 70 mm[Hg] blood pressu re, diastolic BP Systolic 124 mm[Hg] blood pressur e, systolic Heart Rate 79 /min pulse rate Height 66 [in_us] height E&M Respiratory Rate 16 /min respirat ory rate E&M Weight Measured 151.4 [lb_av] weight E& M Weight Measured 151.4 [lb_av] weight E& M Immunizations No information available. Advance Directives Directive Description Start Date NO ADVANCED DIRECTIVES AT THIS TIME 2023
--- OUTSIDE RECORDS SUMMARY | 2025-01-28 09:20 | XMS_ITS | Data Portability ---
Author Organization KECIA ROSANA Cordero [place] [facility] Address [address] [facility] [address] [place] [address] Care Team Providers Care Director Radiation Oncology Name Role Phone TABBY AZUL Infectious Disease [phone] BHUPINDER CRUZ Primary Care Provider Assessment Encounter Date Assessment Date Assessment LastModified by Organization Details LastModified Time 04/08/2024 04/08/2024 78-year-old female with a history of diabetes and remote history of UTI. She was admitted at [facility] for UTI, bacteremia, and CT scan showing left hydronephrosis possibly from a passed stone. She underwent cystoscopy and left stent placement 03/31/2024. She was sent home on Levaquin. She feels well overall and is tolerating the stent well. We discussed left ureteroscopy and stent removal. Potential risks include bleeding, infection, injury to the urethra, bladder, ureter, kidney, and anesthetic risks. Their questions were answered. She is agreeable. Plan: Finish Levaquin. Schedule left ureteroscopy and stent removal. [facility] Not available 04/08/2024 18:53:11 06/04/2024 06/04/2024 SURGERY DATE: 06/04/2024 PREOPERATIVE DIAGNOSES: 1. Left ureteral stent in situ. 2. Left hydronephrosis with possible history of stone. 3. History of urinary tract infection. POSTOPERATIVE DIAGNOSES: 1. Left ureteral stent in situ. 2. Left hydronephrosis with possible history of stone. 3. History of urinary tract infection. PROCEDURES: 1. Cystoscopy with left ureteral stent removal. 2. Left ureteroscopy, diagnostic. 3. Fluoroscopy, supervision and interpretation. ANESTHESIA: General. SPECIMEN: None. ESTIMATED BLOOD LOSS: None. COMPLICATIONS: None. DRAIN: None. FINDINGS: The left ureteral stent was in proper position and removed intact. Left ureteroscopy showed normal ureter without tumor, stone, or obstruction. SURGEON: Chaitanya Alamo MD INDICATIONS: A 78-year-old female with a history of diabetes and remote history of UTI. She was admitted at [facility] for UTI, bacteremia, and CT scan showing left hydronephrosis possibly from a passed stone. She underwent cystoscopy and left ureteral stent placement in March 2024. She was discharged home on Levaquin. She is here today for left stent removal and ureteroscopy with possible stone extraction if needed. OPERATIVE NOTE: After informed consent, the patient was taken to the operating room in stable condition. Anesthesia was induced without complications. She was placed in a lithotomy position. The genitalia and groins were prepped and draped. A time-out was taken to identify the correct patient and procedures and side. A 22-Cymro cystoscope was placed per urethra into the bladder. Inspection revealed a normal bladder with left stent in proper position. An alligator grasper was used to pull the stent outside the urethral meatus. A 0.035 hydrophilic guidewire was cannulated through the stent and up to the level of the kidney. The stent was removed and discarded. Left ureteroscopy was performed with a semi-rigid ureteroscope. This passed easily into the ureter and up to the level of the renal pelvis. No stone, tumor, or obstruction was identified. The ureteroscope was withdrawn and the ureter was inspected on the way out and again there was no stone. The wire was removed. Lidocaine jelly was placed per urethra. She was awakened from anesthesia and taken to the recovery room in satisfactory condition. DISPOSITION: She will be discharged to home in the care of her when stable. She may use Tylenol, ibuprofen, or Azo for discomfort. She has scheduled followup in about 4 weeks. [email or web address] Not available 06/07/2024 08:02:52 07/02/2024 07/02/2024 78 year-old female with a history of diabetes and remote history of UTI. She was admitted at [facility] for UTI, bacteremia, and CT scan showing left hydronephrosis possibly from a passed stone. She underwent cystoscopy and left stent placement 03/2024 followed by left stent removal and left diagnostic ureteroscopy 05/2024, no stone was seen. She feels well after left stent removal and ureteroscopy last month. The UA is negative. I recommend checking BMP. Plan: Check BMP. Follow-up as needed. [email or web address] Not available 07/02/2024 14:09:59 Plan of Treatment Reminders Order Date Submit Date Provider Last Modified By Organization Details Last Modified Time Details Appointments None recorded. Lab BMP, serum or plasma 2023 024 [facility], [address] [place], [address], 4 17:50:21 urinalysis panel, auto 2023 024 sm[facility] [address], [facility], [place], [address], 11:46:20 urinalysis panel, auto 2023 024 [email or web address] Not available 08:38:01 Referral None recorded. Procedures None recorded. Surgeries None recorded. Imaging XR, knee, 4 or more view - Short 2, return short 2 2021 [email or web address] Not available 13:59:15 Medication Orders diclofenac 1 % topical gel 2021 022 [facility], [address] [place], [address], 13:29:13 Patient TargetsNo targets recorded. Patient Instructions Encounter Date Encounter Id Patient Instructions Last Modified By Organization Details Last Modified Time 07/03/2022 [id number] knee arthritis: exercises [email or web address] Not available 07/03/2022 13:28:52 Reason for Referral None Reported. Results Created Date Observation Date Name Description Value Unit Range Abnormal Flag Note LastModifiedBy Organization Detail LastModifiedTime 04/08/2004/08/2024 urina lysis panel , auto Unknown Analyte Clean Catch Not Available [facility] [address] [place], [address], 04/08/2024 08:17:42 04/08/20 24 04/08/2024 urina lysis panel , auto Unknown Analyte Yellow Not Available [facility] [address] [place], [address], 04/08/2024 08:17:42 04/08/20 24 04/08/2024 urina lysis panel , auto Unknown Analyte Clear Not Available [facility] [address] [place] [address], [phone], 04/08/2024 08:17:42 04/08/20 24 04/08/2024 urina lysis panel , auto Unknown Analyte 1.010 Not Available [facility] [address] [place] [address], [phone], 04/08/2024 08:17:42 04/08/20 24 04/08/2024 urina lysis panel , auto Unknown Analyte 5.0 Not Available [facility] [address], [address], 04/08/2024 08:17:42 04/08/20 24 04/08/2024 urina lysis panel , auto Unknown Analyte 25 Pat/ul Trace Not Available [address], [address], 04/08/2024 08:17:42 04/08/20 24 04/08/2024 urina lysis panel , auto Unknown Analyte Negati ve Not Available [address], [address], 04/08/2024 08:17:42 04/08/20 24 04/08/2024 urina lysis panel , auto Unknown Analyte 30 mg/dl (+) Not Available [address], [address], 04/08/2024 08:17:42 04/08/20 24 04/08/2024 urina lysis panel , auto Unknown Analyte >1000 mg/dl Not Available [facility] [address] [place], [address], 04/08/2024 08:17:42 04/08/20 24 04/08/2024 urina lysis panel , auto Unknown Analyte Negati ve Not Available [facility] [address] [place], [address], 04/08/2024 08:17:42 04/08/20 24 04/08/2024 urina lysis panel , auto Unknown Analyte Normal Not Available [facility] [address] [place], [address], 04/08/2024 08:17:42 04/08/20 24 04/08/2024 urina lysis panel , auto Unknown Analyte Negati ve Not Available [facility] [address] [place], [address], 04/08/2024 08:17:42 04/08/20 24 04/08/2024 urina lysis panel , auto Unknown Analyte 250 Ruiz/ul Not Available [facility] [address] [place], [address], 04/08/2024 08:17:42 06/04/2006/04/2024 urina lysis panel , auto Unknown Analyte Clean Catch Not Available [facility] Surgery Schedule [address] [place], [address], 06/04/2024 12:44:26 06/04/2006/04/2024 urina lysis panel , auto Unknown Analyte Yellow Not Available [facility] Surgery Schedule [address] [place], [address], 06/04/2024 12:44:26 06/04/2006/04/2024 urina lysis panel , auto Unknown Analyte Clear Not Available [facility] Surgery Schedule [address] [place], [address], 06/04/2024 12:44:26 06/04/20 24 06/04/2024 urina lysis panel , auto Unknown Analyte 1.010 Not Available [facility] Surgery Schedule [address] [place], [address], 06/04/2024 12:44:26 06/04/20 24 06/04/2024 urina lysis panel , auto Unknown Analyte 1.003- 1.035 Not Available [facility] Surgery Schedule [address] [place] [address], [address], 06/04/2024 12:44:26 06/04/2006/04/2024 urina lysis panel , auto Unknown Analyte 6.0 Not Available [facility] Surgery Schedule [address] [place] [address], [address], 06/04/2024 12:44:26 06/04/2006/04/2024 urina lysis panel , auto Unknown Analyte 5.0-8. 0 Not Available [facility] Surgery Schedule [address] [place] [address], [address], 06/04/2024 12:44:26 06/04/2006/04/2024 urina lysis panel , auto Unknown Analyte 25 Pat/ul Trace Not Available [facility] Surgery Schedule [address] [place] [address], [address], 06/04/2024 12:44:26 06/04/2006/04/2024 urina lysis panel , auto Unknown Analyte Negati ve Not Available [facility] Surgery Schedule [address] [place] [address], [address], 06/04/2024 12:44:26 06/04/2006/04/2024 urina lysis panel , auto Unknown Analyte Negati ve Not Available [facility] Surgery Schedule [address] [place] [address], [address], 06/04/2024 12:44:26 06/04/20 24 06/04/2024 urina lysis panel , auto Unknown Analyte Negati ve Not Available [facility] Surgery Schedule [address] [place], [address], 06/04/2024 12:44:26 06/04/2006/04/2024 urina lysis panel , auto Unknown Analyte 30 mg/dl (+) Not Available [facility] Surgery Schedule [address] [place], [address], 06/04/2024 12:44:26 06/04/2006/04/2024 urina lysis panel , auto Unknown Analyte Negati ve Not Available [facility] Surgery Schedule [address] [place], [address], 06/04/2024 12:44:26 06/04/2006/04/2024 urina lysis panel , auto Unknown Analyte 250 mg/dl Not Available [facility] Surgery Schedule [address] [place], [address], 06/04/2024 12:44:26 06/04/2006/04/2024 urina lysis panel , auto Unknown Analyte Normal Not Available [facility] Surgery Schedule [address] [place], [address], 06/04/2024 12:44:26 06/04/2006/04/2024 urina lysis panel , auto Unknown Analyte Negati ve Not Available [facility] Surgery Schedule [address] [place], [address], 06/04/2024 12:44:26 06/04/2006/04/2024 urina lysis panel , auto Unknown Analyte Negati ve Not Available [facility] Surgery Schedule [address] [place], [address], 06/04/2024 12:44:26 06/04/2006/04/2024 urina lysis panel , auto Unknown Analyte Normal Not Available [facility] Surgery Schedule [address] [place], [address], 06/04/2024 12:44:26 06/04/20 24 06/04/2024 urina lysis panel , auto Unknown Analyte Normal 1 mg/dl Not Available [facility] Surgery Schedule [address] [place] [address], [address], 06/04/2024 12:44:26 06/04/20 24 06/04/2024 urina lysis panel , auto Unknown Analyte Negati ve Not Available [facility] Surgery Schedule [address] [place] [address], [address], 06/04/2024 12:44:26 06/04/20 24 06/04/2024 urina lysis panel , auto Unknown Analyte Negati ve Not Available [facility] Surgery Schedule [address] [place] [address], [address], 06/04/2024 12:44:26 06/04/20 24 06/04/2024 urina lysis panel , auto Unknown Analyte Negati ve Not Available [facility] Surgery Schedule [address] [place] [address], [address], 06/04/2024 12:44:26 06/04/20 24 06/04/2024 urina lysis panel , auto Unknown Analyte Negati ve Not Available [facility] Surgery Schedule [address] [place] [address], [address], 06/04/2024 12:44:26 07/02/20 24 07/02/2024 BASIC METAB OLIC PANEL glucose 298 mg/dL 74-100 high Not Available [facility] [address] [place] [address], [address], 07/02/2024 17:50:21 07/02/20 24 07/02/2024 BASIC METAB OLIC PANEL blood urea nitrogen 21 mg/dL 6-20 high Not Available [facility] [address] [place] [address], [address], 07/02/2024 17:50:21 07/02/20 24 07/02/2024 BASIC METAB OLIC PANEL creatinine 0.89 mg/dL 0.50-0 .95 normal Not Available [facility] [address] [place] [address], [address], 07/02/2024 17:50:21 07/02/20 24 07/02/2024 BASIC METAB OLIC PANEL BUN/creatini ne ratio 24 (calc ) 10-20 high Not Available [facility] [address] [place] [address], [address], 07/02/2024 17:50:21 07/02/20 24 07/02/2024 BASIC METAB OLIC PANEL sodium 134 mmol/ L 136-14 5 low Not Available [facility] [address] [place] [address], [address], 07/02/2024 17:50:21 07/02/20 24 07/02/2024 BASIC METAB OLIC PANEL potassium 4.7 mmol/ L 3.4-5. 0 normal Not Available [facility] [address] [place] [address], [address], 07/02/2024 17:50:21 07/02/20 24 07/02/2024 BASIC METAB OLIC PANEL chloride 100 mmol/ L 98-107 normal Not Available [facility] [address] [place] [address], [address], 07/02/2024 17:50:21 07/02/20 24 07/02/2024 BASIC METAB OLIC PANEL carbon dioxide 22 mmol/ L 22-31 normal Not Available [facility] [address] [place] [address], [address], 07/02/2024 17:50:21 07/02/20 24 07/02/2024 BASIC METAB OLIC PANEL anion gap 12 (calc ) 7-25 normal Not Available [facility] [address] [place] [address], [address], 07/02/2024 17:50:21 07/02/20 24 07/02/2024 BASIC METAB OLIC PANEL calcium 9.3 mg/dL 8.6-10 .2 normal Not Available [facility] [address] [place], [address], 07/02/2024 17:50:21 07/02/20 24 07/02/2024 BASIC METAB OLIC PANEL GFR 66 >= 60 normal NOT E New calcu latio n for GFR (CKD- EPI 2020) is formu lated witho ut race adjus tment facto rs at the recom menda tion of the [employer] ation and Pete Muire ty of Nephr ology . This calcu latio n has not been valid ated in pregn ant women . For pedia roland leone nts refer to https ://casandra gan.victor manuel guzman/ezequiel shaffer s/KDO QI/gf r_cal culat orPed Not Available [facility] [address] [place], [address], 07/02/2024 17:50:21 07/02/20 24 07/02/2024 urina lysis panel , auto Unknown Analyte Clean Catch Not Available [facility] [address] [facility], [place], [address], 07/02/2024 11:24:05 07/02/20 24 07/02/2024 urina lysis panel , auto Unknown Analyte Yellow Not Available [facility] [address] [place], [address], 07/02/2024 11:24:05 07/02/20 24 07/02/2024 urina lysis panel , auto Unknown Analyte Clear Not Available [facility] [address] [place], [address], 07/02/2024 11:24:05 07/02/20 24 07/02/2024 urina lysis panel , auto Unknown Analyte 1.010 Not Available [facility] [address] [place], [address], 07/02/2024 11:24:05 07/02/20 24 07/02/2024 urina lysis panel , auto Unknown Analyte 5.0 Not Available [facility] [address] [facility], [place], [address], 07/02/2024 11:24:05 07/02/20 24 07/02/2024 urina lysis panel , auto Unknown Analyte Negati ve Not Available [facility] [address] [facility], [place], [address], 07/02/2024 11:24:05 07/02/2007/02/2024 urina lysis panel , auto Unknown Analyte Negati ve Not Available [facility] [address] [facility], [place], [address], 07/02/2024 11:24:05 07/02/20 24 07/02/2024 urina lysis panel , auto Unknown Analyte Negati ve Not Available [facility] [address] [facility], [place], [address], 07/02/2024 11:24:05 07/02/20 24 07/02/2024 urina lysis panel , auto Unknown Analyte >1000 mg/dl Not Available [facility] [address] [facility], [place], [address], 07/02/2024 11:24:05 07/02/20 24 07/02/2024 urina lysis panel , auto Unknown Analyte Negati ve Not Available [facility] [address] [place], [address], 07/02/2024 11:24:05 07/02/20 24 07/02/2024 urina lysis panel , auto Unknown Analyte Normal Not Available [facility] [address] [place], [address], 07/02/2024 11:24:05 07/02/20 24 07/02/2024 urina lysis panel , auto Unknown Analyte Negati ve Not Available [facility] [address] [facility], [place], [address], 07/02/2024 11:24:05 07/02/20 24 07/02/2024 urina lysis panel , auto Unknown Analyte Negati ve Not Available [facility] [facility], [place], [address], 07/02/2024 11:24:05 07/03/20 22 07/03/2022 XR, knee, 4 or more view [facility] [address] [place] [id number] Dori garcia Name: JANETH garcia : 1944 Patistef garcia 4 Orderi ng Provid er: CAMILLA Raymond EXAM DATE: 2021 EXAM: XR LT KNEE COMPLE TE, 4 OR MORE VWS COMPAR DANAY: None. HISTOR Y: Left knee pain. FINDIN GS: No fractu re is identi fied. There are severe degene rative change s in the left knee. There is near comple te medial joint space loss. There is modera te to severe margin al spurri ng. Contra latera l knee: There are modera te degene rative change s. IMPRES JAY JAY: 1. There are severe degene rative change s in the left knee. Interp reted By: Monica hernandes MD Electr onical ly Signed By: Monica hernandes MD on 2021 1:14 PM [email or web address] [facility] [address], [place], [address], 07/03/2022 14:23:06 02/25/20 24 02/25/2024 XR, knee, 4 or more view [facility] [address] [id number] Dori garcia Name: JANETH garcia : 1944 Dori garcia 4 Orderi ng Provid er: CAMILLA MORRISON S EXAM DATE: 2023 EXAM: XR LT KNEE COMPLE TE, 4 OR MORE VWS COMPAR DANAY: 2021 HISTOR Y: Left knee pain. FINDIN GS: No fractu re is identi fied. There are severe degene rative change s in the left knee. There is near comple te medial joint space loss. There is modera te to severe margin al spurri ng. Contra latera l knee: There are modera te degene rative change s. IMPRES JAY JAY: 1. There are severe degene rative change s in the left knee. Interp reted By: Monica hernandes MD Electr onical ly Signed By: Monica hernandes MD on 02/25/20 24 1:44 PM [email or web address] [facility] [address] [place], [address], 02/26/2024 09:03:37 Result Notes None recorded. Problems Name Problem SNOMED Code Status Onset Date Resolution Date Notes Provider Name and Address Organization Details Recorded Time Carpal tunnel syndrome [id number] Active 2015 From Automated Load;Provi freeman: Jenifer, Chaitanya;St atus: Active Not Available [facility] 6 01:34:04 Problem Notes None recorded. Procedures Surgical History Date Name Laterality Status Provider Name and Address Organization Details Recorded Time 07/02/20 24 Post Void Residual; Ultrasound completed [facility] 07/02/2024 11:29:05 06/04/20 24 Kidney Surgery completed CHAITANYA ALAMO MD [facility] [place], [address], [facility] 06/04/2024 13:31:49 03/31/20 24 Kidney Surgery completed CHAITANYA ALAMO MD [facility] [place], [address], [facility] 04/08/2024 18:53:50 02/25/20 24 Injection Joint/Bursa, Major completed BRAYDEN EDWARDS PA-C [address] [place], [address], [facility] 02/25/2024 14:03:00 07/03/20 22 Injection Joint/Bursa, Major completed BRAYDEN EDWARDS PA-C [address] [place], [address], [facility] 07/03/2022 13:45:20 06/17/20 17 Injection Tendon Sheath/Ligament completed CHAITANYA SCHUSTER MD [address] [place], [address], [facility] 06/17/2017 10:30:27 Appendectomy completed [facility] 04/08/2024 08:16:01 procedure on gallbladder completed [facility] 04/08/2024 08:16:10 Imaging Results None recorded. Procedure Notes None recorded. Medical Equipment None Reported. Allergies Allergen ID Allergen Name Allergen Category Reaction Reaction Severity Criticality Documentation Date Start Date Code Code System Note Provider Name and Address Organization Details Recorded Time 339219 codeine medicatio n vomiting severe Not available 07/12/20162015 2670 RxNorm React ion: NAUSE A AND VOMIT ING;S everi ty: Dlyan valencia; Comme nt: Dylan valencia--wilson s to go to the [facility] ;Crea guru By: Brooke garvey Date: 016 2:35: 26 PM; Not Available [facility] 6 11:16:11 Medications Name Sig Start Date Stop Date Status Note LastModified by Organization Details LastModified Time metformin 500 mg tablet active Not Available Not Available Not Available venlafaxin e ER 75 mg capsule,ex tended release 24 hr active Not Available Not Available Not Available glyburide 5 mg tablet Daily active Duration: 30 days;Freq uency: daily;Med ication Descripti on: glyburide ; Dosage:1; Route:ora l; refills:0 ; Quantity: 30 tablet Not Available Not Available Not Available glipizide ER 10 mg tablet, extended release 24 hr active Not Available Not Available Not Available lisinopril 20 mg tablet TAKE 1 TABLET DAILY FOR HYPERTENS ION active Not Available Not Available No t Available Glucophage 1,000 mg tablet Two times a day active Frequency : bid;Medic ation Descripti on: metformin ; Route:ora l; refills:0 Not Available Not Available Not Available esomeprazo le magnesium 40 mg capsule,de layed release Daily active Not Available Not Available Not Available levofloxac in 750 mg tablet active Not Available Not Available Not Available [place] 5 mg-325 mg tablet TAKE 1 TABLET PO Q 6 HRS PRN SEVERE POST SURGICAL PAIN 2017 active Not Available Not Available Not Avai lable metformin ER 500 mg tablet,ext ended release 24 hr TAKE 1 TABLET TWICE A DAY active Not Available Not Available No t Available Lexapro 10 mg tablet Daily active Duration: 30 days;Freq uency: daily;Med ication Descripti on: escitalop ermelinda; Dosage:1; Route:ora l; refills:5 ; Quantity: 30 tablet Not Available Not Available Not Available Januvia 100 mg tablet active Not Available Not Available Not Available Lantus Solostar U-100 Insulin 100 unit/mL (3 mL) subcutaneo us pen active Not Available Not Available Not Available diclofenac 1 % topical gel APPLY 2 GRAMS TO THE AFFECTED AREA(S) BY TOPICAL ROUTE 4 TIMES PER DAY 2021 active Not Available Not Available Not Avai lable Eliquis 5 mg tablet active Not Available Not Available No t Available Victoza 3-Carl 0.6 mg/0.1 mL (18 mg/3 mL) subcutaneo us pen injector active Medicatio n Descripti on: liragluti de; Route:sub cutaneous ; refills:0 Not Available Not Available Not Available Ozempic 2 mg/dose (8 mg/3 mL) subcutaneo us pen injector active Not Available Not Available Not Available Ozempic 0.25 mg or 0.5 mg (2 mg/3 mL) subcutaneo us pen injector active Not Available Not Available Not Available Vitals Date Recorded Body weight Body mass index (BMI) Body height Provider Name and Address Organization Details Last Updated DateTime 02/25/2024 54863.26 g 24 kg/m2 167.64 cm [facility] KECIA Rossana [facility] 02/25/2024 13:41:21 Date Recorded Body mass index (BMI) Body weight Provider Name and Address Organization Details Last Updated DateTime 04/08/2024 24 kg/m2 52171.26 g Adán Govea [facility] 04/08/2024 08:15:14 Date Recorded Body height Provider Name an d Address Organization Details Last Updated DateTime 04/08/2024 167.64 cm Candice Velásquez [facility] 0 04/08/2024 07:54:42 Date Recorded Body height Body mass index (BMI) Body weight Provider Name and Address Organization Details Last Updated DateTime 07/02/2024 167.64 cm 24 kg/m2 55049.26 g She Marlow [facility] 07/02/2024 11:24:00 Date Recorded Body height Body mass index (BMI) Body weight Provider Name and Address Organization Details Last Updated DateTime 07/03/2022 167.64 cm 25.5 kg/m2 61150.59 g Ole Guaman [facility] 07/03/2022 12:37:34 Social History Question Answer Notes LastModified by Organizat ion Details LastModified Time Tobacco Smoking Status Never Smoker Giovana Lares [facility] 12/04/2017 15:03:57 Accident Related Injury No Information not available 12/04/2017 What Is Your Level Of Caffeine Consumption? Moderate Information not available 12/04/2017 Which Of Your Hands Is Dominant? Right Information not available 12/04/2017 Which Hand Is Involved? Left Information not available 12/04/2017 Rate The Severity Of Your Symptoms: (0-10 With 0=none And 10=worst Possible) 8 Information not available 12/04/2017 When Are Your Symptoms The Worst? Night Day Neither Neither Information not available 12/04/2017 Have You Been Treated For This Problem Before? Yes Information not available 12/04/2017 How Long Have You Had These Symptoms? 5 Months Information not available 12/04/2017 Will This Be Filed As Workers' Compensation? No Information not available 12/04/2017 What Was The Date Of Your Most Recent Tobacco Screening? 04/08/2024 [email or web address] Information not available 04/08/2024 What Is Your Relationship Status? [email or web address] Information not available 04/08/2024 Has Tobacco Cessation Counseling Been Provided? No [email or web address] Information not available 04/08/2024 Work Related Injury? No Information not available 12/04/2017 Sex: Unknown Functional Status Question Answer Note LastModified by Organizat ion Details LastModified Time Do you use any illicit or recreational drugs? No Information not available 12/04/2017 Do you or have you ever used any other forms of tobacco or nicotine? No [email or web address] Information not available 04/08/2024 What is your level of alcohol consumption? None Information not available 12/04/2017 Are you currently employed? No Information not available 12/04/2017 Mental Status None recorded. Family History Relationship Description Onset Age of this Age Resolved Age Notes LastModified by Organization Details LastModified Time Unspecified Relation Diabetes mellitus [email or web address] Not available 2023 08:15:32 Medical History Condition Response Diabetes Y Arthritis Y Urinary Tract Infection Y Hypertension Y Gynecological HistoryNo gynecological history recorded. Obstetrics History GPAL:G 0 P 0 0 0 0 Past Encounters Encounter ID Performer Location Encounter Start Date Encounter Closed Date Diagnosis/Indication Diagnosis SNOMED-CT Code Diagnosis ICD10 Code Diagnosis Note [id number] CHAITANYA SCHUSTER MD [facility] [address] [place] [address] 06/17/2017 09:48:34 06/17/2017 11:30:33 Radial styloid tenosynovitis 96967850 M65.4 Injection left First dorsal compartmen t, follow-up as needed or call to schedule release [id number] CHAITANYA SCHUSTER MD [facility] [address] [place] [address] 12/04/2017 14:35:45 12/04/2017 16:25:34 Radial styloid tenosynovitis 48700124 M65.4 Transient relief only with injection, recommend release first dorsal compartmen t [id number] CHAITANYA SCHUSTER MD SURGERY SCHEDULE [address] [place] [address] 12/12/2017 06:58:45 12/12/2017 06:59:10 [id number] JHON LEONE PA-C [facility] [address] [place] [address] 12/25/2017 10:04:33 12/25/2017 10:21:03 Radial styloid tenosynovitis 93851511 M65.4 doing well status post release of the left first dorsal compartmen t. [id number] BRAYDEN EDWARDS PA-C [facility] [address] [place] [address] 07/03/2022 12:25:23 07/03/2022 13:38:48 Pain of left knee joint 6585749550 25523 M25.562 Osteoarthr itis of left knee joint 9179239602 76052 M17.12 ASSESSMENT : DJD LEFT knee PLAN:We discussed conservati ve and surgical treatment options for knee arthritis. We discussed the importance of weight loss, and low-impact aerobic activity. We discussed judicious use of topical NSAIDs, if possible, or Tylenol. We discussed corticoste roid injections and viscosuppl ementation . We discussed bracing, physical therapy, activity modificati on, and use of assistive ambulatory devices. Plan today is for steroid injection. Monitor FSBS at home, call PCP if > 250 Follow up 8 weeks to discuss further options based on improvemen t from I [id number] BRAYDEN EDWARDS PA-C [facility] [address] [address] 02/25/2024 12:58:03 02/25/2024 14:58:34 Osteoarthritis of left knee joint 6955974111 94826 M17.12 ASSESSMENT : DJD LEFT knee PLAN:We discussed conservati ve and surgical treatment options for knee arthritis. We discussed the importance of weight loss, and low-impact aerobic activity. We discussed judicious use of topical NSAIDs, if possible, or Tylenol. We discussed corticoste roid injections and viscosuppl ementation . We discussed bracing, physical therapy, activity modificati on, and use of assistive ambulatory devices. Plan today is for steroid injection. Monitor FSBS at home, call PCP if > 250CSI tolerated well today. I discussed the risk and benefits of CSI to the patient which included the risk of elevated blood sugar, elevated blood pressure. We also discussed the risks of chondrotox ic effect of the medication with repeated injection as well as the risks of infection. The patient voiced understand ing of these risks and wished to proceed with the injection. [id number] CHAITANYA ALAMO MD UROLOGY [facility] [address] [place] [address] 04/08/2024 07:44:28 04/09/2024 04:49:10 Hydronephrosis 73313858 N13.30 Acute urin leilani tract infection 061897006 N39.0 Urinary ca theter in situ 219929793 Z96.0 Bacteremia 0607453 R78.8 1 [id number] CHAITANYA ALAMO MD SURGERY SCHEDULE [address] [place] [address] 06/04/2024 11:50:41 06/04/2024 11:51:30 [id number] CHAITANYA ALAMO MD UROLOGY [facility] [address] [place] [address] 07/02/2024 10:36:02 07/02/2024 11:55:28 Hydronephrosis 18800636 N13.30 History of urinary tract infection 7500895128 107 Z87.440 Type 2 cierra betes mellitus without complication 882292104 E11.9 Health Concerns Section Related Observation LastModified by Organization Detai ls LastModified Time None Recorded Concern Status LastModified by Organization Details LastModified Time None Recorded Advance Directives Directive None Recorded Payers Insurance Date Sequence Insurance Name Policy Number Policy Lujan Covered Member ID Lujan Member ID Guarantor Name 01/08/2018 2 UNSPECIFIED REMIT PAYOR Janeth Velasquez 01/28/2018 2 UNSPECIFIED REMIT PAYOR Janeht Velasquez 07/07/2024 2 [place] [id number] Janeth Velasquez [id number] Janeth Velasquez 07/02/2024 1 [place] Janeth Velasquez [id number] Janeth Velasquez Notes Date Note Type Note Provider Name and Address Organization Details Recorded Time 2 text/html 07/03/22 Janeth arrives with pain in her Left Knee. She states that she has had problems for many years, but her concern today is a fall she had 4 weeks ago. She's been to her primary twice and received some topical medications for the knee, which gave no relief. 4 week history of LEFT knee pain. Fall injury. Primary location of pain: retropatellar Endorses lateral and medial as well.Posterior pain: Occasional posterior painSeverity of pain: 4/10 on average, 6 at worstMechanical symptoms: frequentCrepitus: Frequent crepitus.Effusions: No effusionsFrequency of symptoms: dailyNight/rest pain: yesExacerbating factors: prolonged weight bearing, ascending and descending stairs, certain flexion activitiesSubjective instability: NoFalls: Occasional [facility] no [facility].Narcotic medication: no Dose: Prescriber:Steroid injections: no relief. Date of last inj:Viscosupplementation: no relief. Date of last inj:PT: No Location: When: Focus: Benefit: no relief.Braces: noAmbulatory aids/assistive device: nonePrior surgery on knee: none BRAYDEN EDWARDS PA-C [address] [place], [address], [facility] 07/03/2022 13:45:29 4 text/html Patient comes in today for FU Left Knee.Patient states they are worse than last visit. Per pt gives out more x1-2 months, takes tylenol arthritis and advil prn BRAYDEN EDWARDS PA-C [address] [place], [address], [facility] 02/25/2024 14:03:19 4 text/html Diagnoses: Left hydronephrosis, UTI, urosepsis 78-year-old white female G1, P1. She has not had a hysterectomy. She has a history of left hydronephrosis, possible stone, UTI, and bacteremia. She presented to the [facility] emergency room with left renal colic. A CT scan with contrast showed mild left hydronephrosis, significant left perinephric stranding, and possible soft tissue at the left UVJ. She was thought to have possibly passed a stone. She was transferred to [facility] and was seen by Jaelyn Post APRN and Tabby Azul MD with infectious Diseases. Blood cultures showed E. coli resistant to ampicillin and Bactrim and Enterobacter treated with Invanz. She had persistent leukocytosis and underwent cystoscopy with left stent placement 03/31/[address] Alejandre. She was discharged on Levaquin. She denies previous history of stones. She has a remote history of UTI. She has diabetes and hypertension. She is a non-smoker. Her brother had kidney stones. She denies family history of urologic malignancy. She is retired. She worked at [employer] HPI: The patient is here with her Brayan for hospital follow-up. She is tolerating the stent well. She denies flank or abdominal pain. She has some urgency. She feels tired. CHAITANYA ALAMO MD [address] [place] [address], [phone], [facility] 04/08/2024 18:54:18 4 text/html Diagnoses: Left hydronephrosis, UTI, urosepsis 78 year-old white female G1, P1. She has not had a hysterectomy. She has a remote history of UTI. She has a history of left hydronephrosis, possible stone, UTI, and bacteremia 03/2024. She presented to the [facility] emergency room with left renal colic. A CT scan with contrast showed mild left hydronephrosis, significant left perinephric stranding, and possible soft tissue at the left UVJ. She was thought to have possibly passed a stone. She was transferred to [facility] and was seen by Jaelyn Post APRN and Tabby Azul MD with infectious Diseases. Blood cultures showed E. coli resistant to ampicillin and Bactrim and Enterobacter treated with Invanz. She had persistent leukocytosis and underwent cystoscopy with left stent placement 03/[address] Alejandre. She was discharged on Levaquin. She underwent left stent removal and left diagnostic ureteroscopy 05/[address] Alamo, no stone was seen. She has diabetes and hypertension. She is a non-smoker. Her brother had kidney stones. She denies family history of urologic malignancy. She is retired. She worked at [employer] HPI: The patient is here for follow-up after left stent removal and ureteroscopy last month. She feels well other than low energy. She voids well. She denies dysuria, frequency, urgency, or flank pain. CHAITANYA ALAMO MD [address] [place] [address], [phone], [facility] 07/02/2024 14:10:34 OBGyn Episode No OBEpisode recorded.
--- OUTSIDE RECORDS SUMMARY | 2025-01-28 09:20 | XMS_ITS | Encounter Summary ---
Author Organization [facility] Address [address] [place] [address] Care Team Providers Care Order Manager Name Role Phone Scott Main MD Primary Care Provider [phone] Encounter Details Date Type Department Care Team (Late st Contact Info) Description 02/04/2019 Transcribed Document [facility] [place] [address] ProviderAurea MD [address] [place] [address] Social History Tobacco Use Types Packs/Day [...] - 02/04/2019 8:05 AM CDT [facility] Intra[facility] Summary Primary Physician: MAYTE HALL MD-GAE Finalized Date/Time: 02/04/19 08:34:16 Pt. Name: JANETH QUINONES D.O.B./Sex: 1945 Female Med Rec #: [id number] Physician: MAYTE HALL MD-GAE Financial #: [id number] Pt. Type: O Room/Bed: EEN/2 Admit/Disch: 02/04/19 06:46:00 - Institution: [facility] Endo - Case Attendance Entry 1 Entry 2 Entry 3 Case Attendee MAYTE HALL MD-GAE Hamlin, Sherri, RN PRESCOTT, JACHELE Role Performed Surgeon/Proceduralist, Radio Repair Teacher, First Scrub, First First Time In 02/04/19 07:48:00 02/04/19 07:48:00 02/04/19 07:48:00 Time Out 02/04/19 08:31:00 02/04/19 08:31:00 02/04/19 08:31:00 Procedure Colonoscopy, Colon Colonoscopy, Colon Colonoscopy, Colon Polypectomy Polypectomy Polypectomy Other Attendee Superficial Wound Closed By: Last Modified By: Leigh Coyle, Leigh Curry, Leigh Curry RN 02/04/19 08:32:56 02/04/19 08:32:56 02/04/19 08:32:56 Entry 4 Case Attendee CAITIE WEBSTER CRNA Role Performed WARP DOFFER/Nurse Services Manager Time In 02/04/19 07:48:00 Time Out 02/04/19 08:31:00 Procedure Colonoscopy, Colon Polypectomy Other Attendee Superficial Wound Closed By: Last Modified By: Leigh Coyle RN 02/04/19 08:32:56 [facility] - Case Attendance Audit 02/04/19 08:32:56 Seafood Specialist: [email or web address] Modifier: [email or web address] 1 <+> Time Out 1 <*> Procedure Colonoscopy 2 <+> Time Out 2 <*> Procedure Colonoscopy 3 <+> Time Out 3 <*> Procedure Colonoscopy 4 <+> Time Out 4 <*> Procedure Colonoscopy 02/04/19 07:53:57 Seafood Specialist: [email or web address] Modifier: [email or web address] <+> 1 Time In <+> 1 Procedure 2 <+> Time In 2 <*> Procedure Colonoscopy 3 <+> Time In 3 <*> Procedure Colonoscopy 4 <+> Time In 4 <*> Procedure Colonoscopy [facility] - Case Times Entry 1 Patient In Room Time 02/04/19 07:48:00 Out Room Time 02/04/19 08:31:00 Anesthesia Start Time 02/04/19 07:48:00 Stop Time 02/04/19 08:31:00 Anesthesia Ready 02/04/19 07:48:00 Surgery / Procedure Times Start Time 02/04/19 08:05:00 Stop Time 02/04/19 08:27:00 Last Modified By: Leigh Coyle RN 02/04/19 08:31:33 [facility] - Case Times Audit 02/04/19 08:31:33 Seafood Specialist: BRETT Modifier: [email or web address] <+> 1 Out Room Time <+> 1 Stop Time <+> 1 Stop Time 02/04/19 08:08:05 Seafood Specialist: [email or web address] Modifier: [email or web address] <+> 1 Start Time [facility] - Cultures and Spec Summary Entry 1 Cultrures and Specimens Specimen Ordered: Yes Specimens Types Pathology Specimen(s) Labeled Pathology and Sent to Last Modified By: Leigh Coyle RN 02/04/19 08:34:08 General Comments: DESCENDING COLON POLYP, SIGMOID COLON POLYP [facility] - Delays Entry 1 Delay Reason Other Duration 0 Minute(s) Comment NO DELAY Last Modified By: Leigh Coyle RN 02/04/19 07:51:33 [facility] - Departure from OR Entry 1 Integumentary Assessment Integumentary WDL Assessment WDL Transfer/Handoff Transfer to PACU Phase I Handoff Reported to CHRIS WITT RN Post-op Transport Stretcher/Gurney Via Patient Transport Leigh Coyle RN, Accompanied by CAITIE WEBSTER CRNA Last Modified By: Leigh Coyle RN 02/04/19 07:52:07 [facility] - Endoscopy Details Entry 1 Abdomen Procedure Soft, Non-Tender Assessment Procedure Abdomen 02/04/19 07:52:00 Assessment D/T Radio Frequency Ablation Last Modified By: Leigh Coyle RN 02/04/19 07:52:15 [facility] - Fire Risk Assessment Entry 1 Fire Info Surgical Site or 0- No Incision Above the Xyphoid Open O2 Source 1- Yes (Mask or Cannula) Available Ignition 1- Yes (ESU, Laser, Light Source) Fire Risk 2 Assessment Score Fire Score Fire Risk Yes Assessment Complete Fire Risk Leigh Coyle RN Assessment Verified By Fire Risk 02/04/19 07:52:00 Assessment Verified Date/Time Fire Risk High Risk Protocol Yes Implemented Standard Fire Yes Safety Precautions Followed Last Modified By: Leigh Coyle RN 02/04/19 07:52:22 [facility] - General Case Fire Ranger 1 Case Information OR Endo 04 [facility] Case Level 1 Room Verified Yes Wound Class III - Contaminated Specialty SN Gastroenterology Anesthesia Type MAC ASA Class 3 Diagnosis Preop Diagnosis SCREENING Postop Same As Preop No Postop Diagnosis POLYPS,HEMORRHOIDS Last Modified By: Leigh Coyle RN 02/04/19 08:31:57 [facility] Endo - General Case Data Audit 02/04/19 08:31:57 Seafood Specialist: [email or web address] Modifier: [email or web address] <+> 1 Postop Diagnosis 02/04/19 08:07:15 Seafood Specialist: [email or web address] Modifier: [email or web address] 1 <+> Postop Same As Preop 1 <*> Preop Diagnosis SCREENING 02/04/19 07:56:34 Seafood Specialist: [email or web address] Modifier: [email or web address] 1 <+> ASA Class 1 <*> Preop Diagnosis ANEMIA, HX OF POLYPS [facility] - Intraoperative Assessment Entry 1 Valid History / Yes Physical in Chart Preoperative Yes Checklist Reviewed/Evaluated Allergies Reviewed Yes Patient is Latex No Sensitive Level of WDL Consciousness (WDL = Alert, Oriented to Person, Place, and Time) Present Upon ECG monitored Arrival to OR Last Modified By: Leigh Coyle RN 02/04/19 07:52:45 [facility] - Intraoperative Equipment Entry 1 Equipment Intraop Monitoring Blood Pressure Arm, left upper Location Pulse Oximeter Hand, right Probe Site Antiembolic Devices Scopes Flexible Endoscopes Colonoscope, Peds Used Scope Serial [id number] Number/Identificatio n Number Photo/Video Documentation Photo Yes Video No Last Modified By: Leigh Coyle RN 02/04/19 07:37:32 [facility] End[facility] - Intraoperative Equipment Audit 02/04/19 07:37:32 Seafood Specialist: [email or web address] Modifier: [email or web address] <+> 1 Photo <+> 1 Video <+> 1 Blood Pressure Location <+> 1 Pulse Oximeter Probe Site <+> 1 Flexible Endoscopes Used <+> 1 Scope Serial Number/Identification Number [facility] Endo - Patient Positioning Entry 1 Entry 2 Procedure Colonoscopy, Colon Colonoscopy, Colon Polypectomy Polypectomy Body Position Lateral, right side up Lateral, right side up Left Arm Position Resting at side Resting at side Right Arm Position Resting at side Resting at side Left Leg Position Other Other Right Leg Position Other Other Position Comments Right leg over Left leg Right leg over Left leg uncrossed uncrossed Feet Uncrossed Yes Yes Pressure Points Yes Yes Checked Positioning Devices Positioning Device Comments Pad/Roll Location Device Position Positioned By Leigh Coyle RN Hamlin, Sherri, RN Position Verified Positioning Verified by Anesthesia Positioning Yes Yes Verified by Surgeon Last Modified By: Leigh Coyle RN Hamlin, Sherri, RN 02/04/19 08:32:57 02/04/19 08:32:57 [facility] - Patient Positioning Audit 02/04/19 08:32:57 Seafood Specialist: BRETT Modifier: [email or web address] 1 <*> Procedure Colonoscopy 2 <*> Procedure Colonoscopy 02/04/19 08:32:19 Seafood Specialist: [email or web address] Modifier: [email or web address] <+> 2 Body Position <+> 2 Right Arm Position <+> 2 Left Arm Position <+> 2 Right Leg Position <+> 2 Left Leg Position <+> 2 Feet Uncrossed <+> 2 Pressure Points Checked <+> 2 Procedure <+> 2 Positioning Verified by Surgeon <+> 2 Position Comments <+> 2 Positioned By [facility] - Sign In Entry 1 Patient, Site, Yes Procedure Identified Surgical Consent Yes Confirmed Relevant Surgical Yes Documents Available Surgical Site N/A Marked by person performing procedure Allergies Yes Airway Hypothermia Risk No Warming Measures No Taken Last Modified By: Leigh Coyle RN 02/04/19 07:53:18 [facility] - Sign Out Entry 1 RN Confirmation Surgical Yes Procedure(s) Identified Instrument, Sponge N/A and Sharps Counts Correct/Documented Equipment Problems N/A Documented Specimen Labeled Yes Correctly Urinary Catheter N/A Documented in IView Safety Checklist Yes Elements Complete? RN Sign Out Leigh Coyle RN Signature RN Sign Out 02/04/19 08:32:00 Signature Date/Time Plan of Care Outcome - Fire Risk OUTCOME STATEMENT: Goal met Patient is free from injury related to surgical fire Plan of Care Outcome - Pt Positioning OUTCOME STATEMENT: Goal met Absence of signs and symptoms of positioning injury. Plan of Care Outcome - Skin Prep OUTCOME STATEMENT: Goal met Intraoperative care is consistent with measures to prevent infection Plan of Care Outcome - Xray/Images OUTCOME STATEMENT: N/A Absence of observable signs or symptoms of radiation injury Plan of Care Outcome - Counts OUTCOME STATEMENT: N/A Absence of signs and symptoms of injury related to extraneous objects Last Modified By: Leigh Coyle RN 02/04/19 08:32:07 [facility] - Surgical Procedures Entry 1 Entry 2 Procedure Colonoscopy Colon Polypectomy Modifiers Additional Procedure Description Primary Procedure Yes No Primary Surgeon MAYTE HALL MD-GAE HAAS, LAURIE, MD-GAE Start 02/04/19 08:05:00 02/04/19 08:05:00 Stop 02/04/19 08:27:00 02/04/19 08:27:00 Physician States 02/04/19 08:11:00 02/04/19 08:11:00 Cecum Reached Anesthesia Type MAC MAC Specialty SN Gastroenterology SN Gastroenterology Wound Class III - Contaminated III - Contaminated Last Modified By: Leigh Coyle RN Hamlin, Sherri, RN 02/04/19 08:32:11 02/04/19 08:32:53 [facility] - Surgical Procedures Audit 02/04/19 08:32:53 Seafood Specialist: [email or web address] Modifier: [email or web address] <+> 2 Procedure <+> 2 Primary Procedure <+> 2 Primary Surgeon <+> 2 Specialty <+> 2 Start <+> 2 Stop <+> 2 Wound Class <+> 2 Anesthesia Type <+> 2 Physician States Cecum Reached 02/04/19 08:32:11 Seafood Specialist: [email or web address] Modifier: [email or web address] <+> 1 Stop 02/04/19 08:31:10 Seafood Specialist: [email or web address] Modifier: [email or web address] 1 <*> Procedure Colonoscopy 1 <+> Physician States Cecum Reached 02/04/19 08:10:39 Seafood Specialist: [email or web address] Modifier: [email or web address] <+> 1 Start E Endo - Time Out Entry 1 Procedure to be Colonoscopy, Colon Performed Polypectomy Time Out Time Out Pause Time 02/04/19 08:04:00 All activity Yes suspended (unless life threatening emergency) Team Verbally Correct patient Confirms Information identity, Correct side and site are marked, Consent form is present and accurate, Agreement on the procedure to be done, Correct patient position Antibiotic N/A Prophylaxis Administered Or In Progress Within the Last 60 Minutes Beta Carlota N/A Administered Venous N/A Thromboembolism Prophylaxis Required Anticipated Critical Events Surgeon None expected Last Modified By: Leigh Coyle RN 02/04/19 08:32:57 [facility] - Time Out Audit 02/04/19 08:32:57 Seafood Specialist: [email or web address] Modifier: [email or web address] 1 <*> Procedure to be Performed Colonoscopy Case Comments <None> Finalized By: Leigh Coyle RN Document Signatures Signed By: Leigh Coyle RN 02/04/19 08:34 Electronically signed by Braulio [facility] Conversion Senior Category Manager Cerner at 12/04/2022 4:37 PM CDT documented in this encounter Plan of Treatment Not on file documented as of this encounter Visit Diagnoses Not on filedocumented in this encounter Care Teams Order Manager Relationship Specialty Start Date End Date Scott Main MD [address] [place] [address] [place] [address] PCP - General Family Medicine 03/29/24 documented as of this encounter
--- OUTSIDE RECORDS SUMMARY | 2025-01-28 09:20 | XMS_ITS | Clinical Summary ---
Author Organization [employer] Address [address] [place] [address] Care Team Providers Care Bow Stapler Name Role Phone Scott Main MD Primary Care Provider +1- [phone] Allergies Active Allergy Reactions Criticality Noted Date [...] your living situation today? I have a [facility] place to live 03/29/2024 Think about [...] Do you speak a language other than Kyrgyz at [facility]? No 03/29/2024 Do you want help with [...] 03/31/2024 9:40 PM EDT Plan of Treatment Health Maintenance Due Date Last Done Comments DXA SCAN 1945 Diabetic Kidney Health Evaluation (KED) 1945 Diabetic Eye Exam 1955 Diabetic foot exam 1955 Depression Screening (12+) 1957 Hepatitis C Screening 1963 Pneumococcal 50+ years (1 of 2 - PCV) 1964 Shingles Vaccine (Zoster) (1 of 2) 1995 Medicare Initial AWV G0438 05/20/2004 Respiratory Syncytial Virus (RSV) Adult or (1 - 1-dose 75+ series) 2020 COVID-19 VACCINE ( - season) 2024 Hemoglobin A1C 06/29/2024 03/29/2024 Falls Risk Screening 08/19/2024 Tobacco Cessation Counseling and Screening (12+) 03/2903/29/2024 Influenza Vaccine (Season Ended) 2025 DTAP/TDAP/TD VACCINES (2 - Td or Tdap) 06/04/2032 Medical Devices Implanted Type Area Automobile Or Truck Rental Dispatcher Device Identifier Shelf Expiration Date Model / Serial / Lot Stent Uret Percflx 6x24 .038 [id number] - [id number] Implanted:Qty : 1 on 03/31/2024 by Colton Alejandre Jr., MD at [facility] IMPLANTS Left: Ureter [employer]:UROLOGY/GYNE COLOGY 10/21/2026 [id number] / / [id number] Procedures Procedure Name Priority Date/Time Associated Diagnosis Comments HEMOGLOBIN A1C Add-On 03/29/2024 3:19 PM EDT from Last 3 Months or Most Recently Relevant to Health Maintenance Results * (ABNORMAL) Hemoglobin A1c (03/29/2024 3:19 PM EDT) Hemoglobin A1C 10.7(H) 4.2 - 6.3 % 03/29/2024 3:40 PM EDT [facility] Comment: Hemoglobin A1C levels are related to mean glucose during the preceding 2-3 months. Less than 7% demonstrates glycemic control in diabetic patients. Hemoglobin AlC % Suggested Diagnosis > or = 6.5 Diabetic 5.7 - 6.4 Prediabetic <5.7 Non-diabetic eAVG Glucose 260.39 mg/dL 03/29/2024 3:40 PM EDT [facility] Blood Venipuncture / Unknown 03/29/2024 3:19 PM EDT 03/29/2024 3:19 PM EDT us Fernando Fritz MD LAB BLOOD ORDERABLES Final R esult [facility] [address] [phone] from Last 3 Months or Most Recently Relevant to Health Maintenance Insurance [place]IC[place] [address] SUPPL Advance Directives For more information, please contact: [phone] * Full Code (Latest Code Status on File) Date Activated Date Inactivated Comments 03/29/2024 1:17 PM 04/02/2024 6:02 PM Care Teams Bow Stapler Relationship Specialty Start Date End Date Scott Main MD [address] [place] [address] PCP - General Family Medicine 03/29/24
== END 2025-01-27 23:59 | disposition home or self-care (01) ==
LOC: LAB.DROPOF 01-28 09:12
PROVIDERS: PCP Family Medicine; Visit Provider Family Medicine
DX: E11.9 Type 2 diabetes mellitus without complications (principal); D50.9 Iron deficiency anemia, unspecified; Z11.59 Encounter for screening for other viral diseases
CPT/HCPCS: 80053; 80061; 82043; 82570; 82728; 83036; 83540; 83550; 84443; 85025; 86803; 87340; 87389

== ENCOUNTER 2025-07-19 11:28 | Outpatient (CLI) | payer MEDICARE, BC, SELFPAY ==
--- OUTSIDE RECORDS SUMMARY | 2025-07-20 14:12 | XMS_ITS | Clinical Summary ---
Author Organization [facility] Address [address] [place] [address] Phone Care Team Providers Care Test Center Manager Name Role Phone Lucia Stockton Unavailable Unavailable Conditions or Problems Problem Name Problem Code Onset Date Status Entry Date Provider Comment Standard Description Annotate Leg edema, left 936321199 (SNOMED CT) 04/09 Active 04/09 Nas Azul MD Edema of lower extremity Hydrouretero nephrosis 84644324 (SNOMED CT) 04/07 Active 04/07 Yamileth Davy Hydroureteronep hrosis Acute Pyelonephrit is 96283908 (SNOMED CT) 04/07 Active 04/07 Yamileth Davy Acute pyelonephritis Neutrophilic leukemoid reaction D72.823 (ICD-10-CM) 04/07 Active 04/07 Yamileth Davy Leukemoid reaction E. Coli sepsis A41.51 (ICD-10-CM) 04/07 Active 04/07 Yamileth Davy Sepsis due to Escherichia coli [E. coli] Acute renal failure with tubular necrosis 467789492125 101 (SNOMED CT) 04/07 Active 04/07 Yamileth Davy Acute renal failure due to tubular necrosis DM Type II E11.9 (ICD-10-CM) 04/07 Active 04/07 Yamileth Davy Type 2 diabetes mellitus without complications Benign Essential Hypertension 63348020 (SNOMED CT) 04/07 Active 04/07 Yamileth Davy Benign hypertension Medications Medication Instructions Start Date Stop Date Generic Name [facility] Provider JANUVIA 100 MG TABS once a day sitagliptin phosphate 57127647109 Lucia Stockton OZEMPIC (0.25 OR 0.5 MG/DOSE) 2 MG/3ML SOPN once a week semaglutide 49001265088 Lucia morales NEXIUM 20 MG CPDR 1 capsule once a day esomeprazole magnesium 94828345058 Lucia Stockton LEVOFLOXACIN 750 MG TABS Take 1 tablet by mouth once a day take around the time of urologic procedure in the future levofloxacin 31418515237 Nas Azul MD VENLAFAXINE HCL ER 75 MG [id number]-JVX Take 1 capsule (75 mg total) by mouth daily. venlafaxine 59637764732 [employer]IE [employer] SITAGLIPTIN 100 MG TABS Take 1 tablet (100 mg total) by mouth daily. sitagliptin 97726269009 QIE [employer]ieuser METFORMIN HCL ER [address] [id number] Take 1 tablet (500 mg total) by mouth 2 (two) times daily with breakfast and dinner. metformin (glucophage xr) 31067196160 QIE qieuser LISINOPRIL 20 MG TABS Take 1 tablet (20 mg total) by mouth daily. lisinopril 93812828997 QIE [employer]ieuser LEVOFLOXACIN 750 MG TABS Take 1 tablet (750 mg total) by mouth daily for 11 days. levofloxacin 99927156747 QIE [employer]ieuser LANTUS SOLOSTAR 100 UNIT/ML SOPN Inject 20 Units subcutaneously nightly. insulin glargine 91659054224 QIE [employer]ieuser GLIPIZIDE ER 10 MG LL96N-VZX Take 1 tablet (10 mg total) by mouth 2 (two) times daily with breakfast and dinner. glipizide 40473042794 QIE [employer]user ESOMEPRAZOLE MAGNESIUM 40 MG CPDR Take 1 capsule (40 mg total) by mouth daily. esomeprazole magnesium 73206946592 QIE qieuser Medications Administered No information available. [...] smoking status SMOK STATUS Never smoker Toba sr account executive smoking status Lab Report: DUPLEX VENOUS LO [...] Procedures Code Procedure Name Date Entry Date CPT-29870 US-Venous Doppler Lower Extremity O4690o,[id number] CBC with Differential 2023 CPT-49457 BMP Vital Signs Date Name Value Unit [...]
--- OUTSIDE RECORDS SUMMARY | 2025-07-20 14:12 | XMS_ITS | Encounter Summary ---
Author Organization [employer] ([place], [place], [place], [place], [place]) Address [address] [place] [address] Care Team Providers Care Substation Operator Transforming Name Role Phone Scott Main MD Primary Care Provider +1- [phone] Encounter Details Date Type Department Care Team (Late st Contact Info) Description 02/04/2019 Transcribed Document [facility] [place] [facility] [address] ProviderAurea MD [address] [place] [address] Social History Tobacco Use Types Packs/Day Years Used Date Smoking Tobacco: Never Assessed Comments Unknown Sex and Gender Information Value Date Recorded Sex Assigned at Not on file Legal Sex Female 3:56 PM CDT Gender Identity Not on file Sexual Orientation Not on file documented as of this encounter Miscellaneous Notes * Cerner Conversion Note - Aurea ProviderMD - 02/04/2019 7:40 AM CDT Advance Directive [...] on filedocumented in this encounter Care Teams Substation Operator Transforming Relationship Specialty Start Date End Date Scott Main MD [address] [place] [address] PCP - General Family Medicine 03/29/24 documented as of this encounter
--- OUTSIDE RECORDS SUMMARY | 2025-07-20 14:12 | XMS_ITS | Encounter Summary ---
Author Organization [employer] ([place], [place], [place], [place], [place]) Address [address] [place] [address] Care Team Providers Care Analyst Sales Name Role Phone Scott Main MD Primary Care Provider +1- [phone] Encounter Details Date Type Department Care Team (Late st Contact Info) Description 02/04/2019 Transcribed Document [facility] [place] [facility] [place] [address] ProviderAurea MD [address] [place] [address] Social History Tobacco Use Types Packs/Day Years Used Date Smoking Tobacco: Never Assessed Comments Unknown Sex and Gender Information Value Date Recorded Sex Assigned at Not on file Legal Sex Female 3:56 PM CDT Gender Identity Not on file Sexual Orientation Not on file documented as of this encounter Miscellaneous Notes * Cerner Conversion Note - Aurea Delgdao MD - 02/04/2019 8:05 AM CDT [facility] PACU Summary Primary Physician: MAYTE HALL MD-GAE Finalized Date/Time: 02/04/19 09:07:45 Pt. Name: JAKOB QUINONESO.B./Sex: 1945 Female Med Rec #: [id number] Physician: MAYTE HALL MD-GAE Financial #: [id number] Pt. Type: O Room/Bed: EEN/2 Admit/Disch: 02/04/19 06:46:00 - Institution: [facility] PACU Case Times Entry 1 In PACU I 02/04/19 08:36:00 Ready for PACU 02/04/19 09:02:00 Discharge Discharge from PACU 02/04/19 09:07:00 [facility] PACU Case Times Audit 02/04/19 09:07:44 Machine Clipper: ESTEBAN Modifier: HEATHERLAWRENCE <+> 1 Ready for PACU Discharge <+> 1 Discharge from PACU I Finalized By: Karla Garcia Rn Document Signatures Signed By: Karla Garcia Rn 02/04/19 09:07 documented in this encounter Plan of Treatment Not on file documented as of this encounter Visit Diagnoses Not on filedocumented in this encounter Care Teams Analyst Sales Relationship Specialty Start Date End Date Scott Main MD [address] [place] [address] PCP - General Family Medicine 03/29/24 documented as of this encounter
--- OUTSIDE RECORDS SUMMARY | 2025-07-20 14:12 | XMS_ITS | Encounter Summary ---
Author Organization [employer] ([place], [place], [place], [place], [place]) Address [address] [place] [address] Care Team Providers Care Director Professional Services Name Role Phone Scott Main MD Primary Care Provider +1- [phone] Encounter Details Date Type Department Care Team (Late st Contact Info) Description 02/04/2019 Transcribed Document [facility] [place] [facility] [place] [address] ProviderAurea MD [address] [place] [address] Social History Tobacco Use Types Packs/Day Years Used Date Smoking Tobacco: Never Assessed Comments Unknown Sex and Gender Information Value Date Recorded Sex Assigned at Not on file Legal Sex Female 3:56 PM CDT Gender Identity Not on file Sexual Orientation Not on file documented as of this encounter Miscellaneous Notes * Cerner Conversion Note - Aurea ProviderMD - 02/04/2019 8:57 AM CDT [address] [address] JAKOB QUINONES :1945 Visit Time:02/04/2019 [...] Repeat colonoscopy in five years. Where: [address] [facility] [address] [place] [address]- Medications What How Much When Instructions Next [...] slower pace than normal. ? Eat soft, thlj-sd-egcvqd foods. ? Rest often. ??? Take ljcz-dhc-lwhecqz or prescription medicines only as told by [...] 03/19/2005 Document Revised: 04/29/2017 Document Reviewed: 10/16/2016 VividCortex Interactive Patient Education ?? 2018 [employer]. Colon Polyps Introduction Polyps are tissue growths [...] Revised: 01/10/2017 Document Reviewed: 06/25/2016 ?? 2017 Elsevier Emergency Awareness and Preventative Care STROKE is [...] Assistance with quitting is available by contacting 8-664-BQUT-NOW. This is a free resource providing counseling, [...] Be sure to sign up for the [facility] patient portal, which gives you 11/03 access to your medical information ??? including these discharge instructions ??? using your computer, smartphone, or tablet. Just go to TalkBin to get started. Questions? Call . Test Results Laboratory or Other Results This Visit (last charted value for your 02/04/2019 visit) General Chemistry 02/04/19 08:47:00 Glucose POC2: 147 mg/dL -- Normal range between ( 70 and 110 ) Patient Name:JAKOB QUINONES I have received this information and was given the opportunity to ask questions. Patient/Fire Tender Name: Patient/Fire Tender Signature: Relationship to Patient: Clinician/Hospital Fire Tender Signature: Date: Electronically signed by Braulio, [facility] Conversion Director Medical Affairs Cerner at 12/04/2022 4:56 PM CDT documented in this encounter Plan of Treatment Not on file documented as of this encounter Visit Diagnoses Not on filedocumented in this encounter Care Teams Director Professional Services Relationship Specialty Start Date End Date Scott Main MD [address] [place] [address] PCP - General Family Medicine 03/29/24 documented as of this encounter
--- OUTSIDE RECORDS SUMMARY | 2025-07-20 14:12 | XMS_ITS | Encounter Summary ---
Author Organization [employer] ([place], [place], [place], [place], [place]) Address [address] [place] [address] Care Team Providers Care Geospatial Developer Name Role Phone Scott Main MD Primary Care Provider +1- [phone] Encounter Details Date Type Department Care Team (Late st Contact Info) Description 02/04/2019 Transcribed Document [facility] [place] [facility] [place] [address] ProviderAurea MD [address] [place] [id number] Social History Tobacco Use Types Packs/Day Years Used Date Smoking Tobacco: Never Assessed Comments Unknown Sex and Gender Information Value Date Recorded Sex Assigned at Not on file Legal Sex Female 3:56 PM CDT Gender Identity Not on file Sexual Orientation Not on file documented as of this encounter Miscellaneous Notes * Cerner Conversion Note - Aurea ProviderMD - 02/04/2019 8:00 AM CDT [facility] PreOp Summary Primary Physician: MAYTE HALL MD-GAE Finalized Date/Time: 02/04/19 07:45:42 Pt. Name: JAKOB QUINONES D.O.B./Sex: 1945 Female Med Rec #: [id number] Physician: MAYTE HALL MD-GAE Financial #: [id number] Pt. Type: O Room/Bed: EEN/2 Admit/Disch: 02/04/19 06:46:00 - Institution: [facility] PreOp Case Times Entry 1 In Preop 02/04/19 07:16:00 Ready for Holding n/a Room Patient Ready for 02/04/19 07:45:00 Surgery Patient Out of Preop 02/04/19 07:45:00 Patient Out of n/a Holding Room [facility] PreOp Case Times Audit 02/04/19 07:45:33 Staff Submarine Warfare Officer: LUCY Modifier: LUCY <+> 1 Patient Out of Preop <+> 1 Patient Ready for Surgery Finalized By: Idalmis Etienne RN Document Signatures Signed By: Idalmis Etienne RN 02/04/19 07:45 documented in this encounter Plan of Treatment Not on file documented as of this encounter Visit Diagnoses Not on filedocumented in this encounter Care Teams Geospatial Developer Relationship Specialty Start Date End Date Scott Main MD [address] [place] [address] PCP - General Family Medicine 03/29/24 documented as of this encounter
--- OUTSIDE RECORDS SUMMARY | 2025-07-20 14:12 | XMS_ITS | Encounter Summary ---
Author Organization [employer] ([place], [place], [place], [place], [place]) Address [address] [place] [address] Care Team Providers Care Php Developer Name Role Phone Scott Main MD Primary Care Provider +1- [phone] Encounter Details Date Type Department Care Team (Late st Contact Info) Description 02/04/2019 Transcribed Document [facility] [place] [address] ProviderAurea MD [address] [place] [address] Social History Tobacco Use Types Packs/Day [...] slower pace than normal. ? Eat soft, zljt-iq-ikgopc foods. ? Rest often. ??? Take pfbl-pmc-laojqut or prescription medicines only as told by [...] 03/19/2005 Document Revised: 04/29/2017 Document Reviewed: 10/16/2016 ElseWeFi Interactive Patient Education ? 2018 [employer]. documented in this encounter Plan of Treatment Not on file documented as of this encounter Visit Diagnoses Not on filedocumented in this encounter Care Teams Php Developer Relationship Specialty Start Date End Date Scott Main MD [address] [place] [address] PCP - General Family Medicine 03/29/24 documented as of this encounter
--- OUTSIDE RECORDS SUMMARY | 2025-07-20 14:12 | XMS_ITS | Referral Summary ---
Author Organization [employer] ([place], [place], [place], [place], [place]) Address [address] [place] [address] Care Team Providers Care Housefellow Name Role Phone Scott Main MD Primary Care Provider +1- [phone] Allergies Active Allergy Reactions Criticality Noted Date [...] Anemia 03/31/2024 03/31/2024 GERD (gastroesophageal reflux disease) 4 03/31/2024 PUD (peptic ulcer disease) 03/31/202403/31 Severe [...] your living situation today? I have a [facility] place to live 03/29/[address] you li ve. Do you have problems with any of the following? None of the above 03/29/2024 Food Insecurity Answer Date Recorded Within the past 12 months, y ou worried that your food would run out before you got money to buy more. Never true 03/29/2024 Within the past 12 months, radha he food you bought just didn't last [...] Do you speak a language other than [place] at [facility]? No 03/29/2024 Do you want help with school or training? For example, starting or completing job training or getting a high school diploma, GED or equivalent. No 03/29/2024 Physical Activity Answer Date Recorded Number of minutes of exercise per week 120 03/29/2024 Self Management Answer Date Recorded Because of a physical, [...] on file Medical Devices Implanted Type Area Pressure Sealer And Tester Device Identifier Shelf Expiration Date Model / Serial / Lot Stent Uret Percflx 6x24 .038 [id number] - [id number] Implanted:Qty : 1 on 03/31/2024 by Colton Alejandre Jr., MD at [facility] IMPLANTS Left: Ureter [employer]:UROLOGY/GYNE COLOGY 10/21/2026 [id number] / / [id number] Procedures Procedure Name Priority Date/Time Associated Diagnosis Comments HEMOGLOBIN A1C Add-On 03/29/2024 3:19 PM EDT from Last 3 Months or Most Recently Relevant to Health Maintenance Results * (ABNORMAL) Hemoglobin A1c (03/29/2024 3:19 PM EDT) Hemoglobin A1C 10.7(H) 4.2 - 6.3 % 03/29/2024 3:40 PM EDT [facility] Comment: Hemoglobin A1C levels are related to mean glucose during the preceding 2-3 months. Less than 7% demonstrates glycemic control in diabetic patients. Hemoglobin AlC % Suggested Diagnosis > or = 6.5 Diabetic 5.7 - 6.4 Prediabetic <5.7 Non-diabetic eAVG Glucose 260.39 mg/dL 03/29/2024 3:40 PM EDT [facility] Blood Venipuncture / Unknown 03/29/2024 3:19 PM EDT 03/29/2024 3:19 PM EDT us Fernando Fritz MD LAB BLOOD ORDERABLES Final R esult [facility] [address] [phone] from Last 3 Months or Most Recently Relevant to Health Maintenance Insurance MEDICARE PART [place] [address] SUPPL Advance Directives For more information, please contact: [phone] * Full Code (Latest Code Status on File) Date Activated Date Inactivated Comments 03/29/2024 1:17 PM 04/02/2024 6:02 PM Care Teams Housefellow Relationship Specialty Start Date End Date Scott Main MD [address] [place] [address] PCP - General Family Medicine 03/29/24
--- OUTSIDE RECORDS SUMMARY | 2025-07-20 14:12 | XMS_ITS | Encounter Summary ---
Author Organization [employer] ([place], [place], [place], [place], [place]) Address [address] [place] [address] Care Team Providers Care Community Health Nurse Name Role Phone Scott Main MD Primary Care Provider +1- [phone] Encounter Details Date Type Department Care Team (Late st Contact Info) Description 02/04/2019 Transcribed Document [facility] [place] [facility] [place] [address] ProviderAurea MD [address] [place] [address] Social History Tobacco Use Types Packs/Day Years Used Date Smoking Tobacco: Never Assessed Comments Unknown Sex and Gender Information Value Date Recorded Sex Assigned at Not on file Legal Sex Female 3:56 PM CDT Gender Identity Not on file Sexual Orientation Not on file documented as of this encounter Miscellaneous Notes * Cerner Conversion Note - Historical ProviderMD - 02/04/2019 7:33 AM CDT Pre Procedure Adult Entered On: 02/04/2019 7:39 EDT Performed On: 02/04/2019 7:33 EDT by Idalmis Etienne RN Height and Weight, Clinical Dosing Height Source : Stated Height Entry Format : [place] Height, Feet : 5 ft(Converted to: 152 cm, 60 Inch) Height, Inches : 6 Inch(Converted to: 0 ft 6 Inch, 15.24 cm) Clinical Height : 167.64 cm Weight Source : Standing scale Weight Entry Format : [place] Clinical Dosing Weight : 74.09 kg Weight, Pounds : 163 lb Body Surface Area (BSA) : 1.84 m2 Body Mass Index : 26.4 kg/m2 (HI) [place] Body Weight : 59 kg Idalmis Etienne [...] #2 Relationship : na Primary Language : Zambian Communication Barrier : None Idalmis Etienne RN [...] Scale Risk Level : 0-24 Low Risk [place] Fall Interventions : Adequate lighting, Bed in [...] Idalmis Etienne RN - 02/04/2019 7:33 EDT Electronically signed by Braulio, [facility] Conversion Community Relations Liaison Cerner at 12/04/2022 4:52 PM CDT documented in this encounter Plan of Treatment Not on file documented as of this encounter Visit Diagnoses Not on filedocumented in this encounter Care Teams Community Health Nurse Relationship Specialty Start Date End Date Scott Main MD [address] [place] [address] PCP - General Family Medicine 03/29/24 documented as of this encounter
--- OUTSIDE RECORDS SUMMARY | 2025-07-20 14:12 | XMS_ITS | Encounter Summary ---
Author Organization [email or web address] ([place], [place], [place], [place], [place]) Address [address] [place] [address] Care Team Providers Care Pattern Layout Worker Name Role Phone Scott Main MD Primary Care Provider +1- [phone] Encounter Details Date Type Department Care Team (Late st Contact Info) Description 02/04/2019 Transcribed Document [facility] [place] [facility] [place] [address] ProviderAurea MD [address] [place] [address] Social History Tobacco Use Types Packs/Day Years Used Date Smoking Tobacco: Never Assessed Comments Unknown Sex and Gender Information Value Date Recorded Sex Assigned at Not on file Legal Sex Female 3:56 PM CDT Gender Identity Not on file Sexual Orientation Not on file documented as of this encounter Miscellaneous Notes * Cerner Conversion Note - Aurea ProviderMD - 02/04/2019 7:39 AM CDT Spiritual Care [...] EDT Electronically signed by Arcenio Ramsey Conversion Rubber Moulding Machine Operator Cerner at 12/04/2022 4:59 PM CDT documented in this encounter Plan of Treatment Not on file documented as of this encounter Visit Diagnoses Not on filedocumented in this encounter Care Teams Pattern Layout Worker Relationship Specialty Start Date End Date Scott Main MD [address] [place] [address] PCP - General Family Medicine 03/29/24 documented as of this encounter
--- OUTSIDE RECORDS SUMMARY | 2025-07-20 14:12 | XMS_ITS | Encounter Summary ---
Author Organization [employer] ([place], [place], [place], [place], [place]) Address [address] [place] [address] Care Team Providers Care Property Developer Name Role Phone Scott Main MD Primary Care Provider [phone]- [phone] Encounter Details Date Type Department Care Team (Late st Contact Info) Description 02/04/2019 Transcribed Document [facility] [place] [facility] [place] [address] [place] [address] ProviderAurea MD [address] [place] [address] [id number] Social History Tobacco Use Types Packs/Day Years [...] 1945 Associated Diagnoses: None Author: ASHELY SOTO MD-SENAIT Basic Information Source of history: Self. oJss Maldonado MD Chief Complaint Screening colonoscopy, family [...] Histories Past Medical History: Active Diabetes mellitus (698638568) Lupus (154493774) Anemia (537665709) Hypertension (0179574492) Anxiety (46632364) GERD (gastroesophageal reflux disease) (356785290) Resolved h/o DVT (deep venous thrombosis) (847126656): Resolved. Procedure history: No active procedure history [...] list: All Problems Anemia / SNOMED CT 932165940 / Confirmed Anxiety / SNOMED CT 76901929 / Confirmed At risk for sleep apnea / IMO 52097920 / Confirmed Diabetes mellitus / SNOMED CT 572081989 / Confirmed GERD (gastroesophageal reflux disease) / SNOMED CT 265101598 / Confirmed Hypertension / SNOMED CT 4805515548 / Confirmed Lupus / SNOMED CT 537139509 / Confirmed Resolved: h/o DVT (deep venous thrombosis) / SNOMED CT 630223018, Active Problems (7) Anemia Anxiety At risk [...] 07:00) 98.4 (FEB 04 07:00) 98.4 (FEB 04:00) Mon HR 78 (FEB 04 07:00) 78 (FEB 04 07:00) 78 (FEB 04 07:00) Resp Rate 18 (FEB 04 07:00) 18 (FEB 04 07:00) 18 (FEB 04 07:00) SBP H 192 (FEB 04 07:00) H 192 (FEB 04:00) H 192 (FEB 04:00) DBP 85 (FEB 04 07:00) 85 (FEB 04 07:00) 85 (FEB 04 07:00) SpO2 99 (FEB 04 07:00) 99 (FEB 04:00) 99 (FEB 04:) General: No acute distress. [...] No deformity, Normal gait. Integumentary: Warm, Dry, [place], No rash. Integumentary exam: Face, Chest, Arm, [...] on filedocumented in this encounter Care Teams Property Developer Relationship Specialty Start Date End Date Scott Main MD [address] [place] [address] [place] [address] PCP - General Family Medicine 03/29/24 documented as of this encounter
--- OUTSIDE RECORDS SUMMARY | 2025-07-20 14:12 | XMS_ITS | Clinical Summary ---
[facility] Address [address] [place] [id number] Care Team Providers Care Razor Sharpener Name Role Phone Scott Main MD Primary Care Provider [phone]- [phone] Allergies Active Allergy Reactions Criticality Noted Date Comments Codeine Nausea And Vomiting 07/17/2022 Medications apixaban (ELIQUIS) 5 MG tablet tablet 2 tabs PO BID for 7 days then 1 tab PO BID 74 tablet 04/09/2024 Active Social History Tobacco Use Types Packs/Day Years Used Date Smoking Tobacco: Never Assessed Abuse Screen Answer Date Recorded Feels Unsafe at Home or Work/School no 04/09/2024 Feels Threatened by Someone no 03/20 Does Anyone Try to Keep You From Having Contact with Others or Doing Things Outside Your Home? no 04/09/2024 Physical Signs of Abuse Present no 04/09/2024 Housing Stability Answer Date Recorded Current Living Arrangements Not on file 03/20 Potentially Unsafe Housing Conditions Not on rivka e 04/09/2024 Family and Community Support Answer Carlos e Recorded Help with Day-to-Day Activities Not on file 04/09/2024 Lonely or Isolated Not on file 04/09/2024 Employment Answer Date Recorded Do you want help finding or keeping work or a georgina b? Not on file 04/09/2024 Disabilities Answer Date Recorded Concentrating, Remembering, or Making Decisions Difficulty Not on file 04/09/2024 Doing Errands Independently Difficulty Not on fi le 04/09/2024 Education Answer Date Recorded Help with school or training? Not on file Preferred Language Not on file 04/09/2024 Comments Unknown Sex and Gender Information Value Date Recorded Sex Assigned at Not on file Legal Sex Female 12:24 PM EDT Gender Identity Not on file Sexual Orientation Not on file Last Filed Vital Signs Vital Sign Reading Time Taken Comments Blood Pressure 175/120 04/09/2024 4:32 PM EDT Pulse 83 04/09/2024 4:32 PM EDT Temperature 36.9 C (98.5 F) 04/09/2024 4:32 PM EDT Respiratory Rate 18 04/09/2024 4:32 PM EDT Oxygen Saturation 100% 04/09/2024 4:32 PM EDT Inhaled Oxygen Concentration - - Weight 68.5 kg (151 lb) 04/09/2024 4:32 PM EDT Height 167.6 cm (5' 6 ) 04/09/2024 4:32 PM EDT Body Mass Index 24.37 04/09/2024 4:32 PM EDT Plan of Treatment Health Maintenance Due Date Last Done Comments ANNUAL PHYSICAL 1945 DXA SCAN 1945 Pneumococcal Vaccine 50+ (1 of 1 - PCV) 1995 ZOSTER VACCINE (1 of 2) 1995 RSV Vaccine - Adults (1 - 1-dose 75+ series) 0 INFLUENZA VACCINE 03/19/2025 COVID-19 Vaccine (1 - 2023- season) 2025 TDAP/TD VACCINES (2 - Td or Tdap) 06/04/2032 022 Insurance MEDICARE A & B Member Subscriber Plan / Payer (Ef fective 2003-Present) Name:Janeth Quinones Member ID:[id number] Relation to Subscriber:Self Name:Janeth Quinones Subscriber ID:[id number] Payer ID:[id number] Group ID:Not on file Type:Not on file Address: [address] Member Subscriber Plan / Payer (Ef fective 2016-Present) Name:Janeth Quinones Relation to Subscriber:Self Name:Janeth Quinones Payer ID:[id number] (NAIC) Group ID:[id number] Type:MEDICARE SUPPLEMENT Address: [facility] [id number] [address] Member Subscriber Plan / Payer (Ef fective 2023-Present) Name:Janeth Quinones Relation to Subscriber:Spouse Name:CLARK QUINONES Date of :1946 Address: [address] [place] [id number] Payer ID:[id number] (NAIC) Type:POS Address: [facility] [address] [place] [id number] Care Teams Razor Sharpener Relationship Specialty Start Date End Date Scott Main MD [address] [facility] [address] PCP - General Family Medicine 04/09/24
--- OUTSIDE RECORDS SUMMARY | 2025-07-20 14:13 | XMS_ITS | Encounter Summary ---
Author Organization [employer] ([place], [place], [place], [place], [place]) Address [address] [place] [address] Care Team Providers Care Ethanol Quality Leader Name Role Phone Scott Main MD Primary Care Provider [phone]- [phone] Encounter Details Date Type Department Care Team (Late st Contact Info) Description 02/04/2019 Transcribed Document [facility] [place] [address] ProviderAurea MD [address] [place] [address] Social History Tobacco Use Types Packs/Day [...] Finalized Date/Time: 02/04/19 08:34:16 Pt. Name: JANETH QUINONES.O.B./Sex: 1945 Female Med Rec #: [id number] Physician: MAYTE HALL MD-GAE Financial #: [id number] Pt. Type: O Room/Bed: EEN/2 Admit/Disch: 02/04/19 06:46:00 - [place] [facility] [place] - Case Attendance Entry 1 Entry 2 Entry 3 Case Attendee MAYTE HALL MD-GAE Hamlin, Sherri, RN GEORGE, JACHELE Role Performed Surgeon/Proceduralist, Payroll Administrator, First Scrub, First First Time In 02/04/19 07:48:00 02/04/19 07:48:00 02/04/19 07:48:00 Time Out 02/04/19 08:31:00 02/04/19 08:31:00 02/04/19 08:31:00 Procedure Colonoscopy, Colon Colonoscopy, Colon Colonoscopy, Colon Polypectomy Polypectomy Polypectomy Other Attendee Superficial Wound Closed By: Last Modified By: Leigh Coyle, Leigh Curry RN Hamlin, Sherri, RN 02/04/19 08:32:56 02/04/19 08:32:56 02/04/19 08:32:56 Entry 4 Case Attendee CAITIE WEBSTER CRNA Role Performed LIQUID COMPOUNDER/Nurse Latent Fingerprint Examiner Time In 02/04/19 07:48:00 Time Out 02/04/19 08:31:00 Procedure Colonoscopy, Colon Polypectomy Other Attendee Superficial Wound Closed By: Last Modified By: Leigh Coyle RN 02/04/19 08:32:56 [facility] - Case Attendance Audit 02/04/19 08:32:56 Preschool Director: [email or web address] Modifier: [email or web address] 1 <+> Time Out 1 <*> Procedure Colonoscopy 2 <+> Time Out 2 <*> Procedure Colonoscopy 3 <+> Time Out 3 <*> Procedure Colonoscopy 4 <+> Time Out 4 <*> Procedure Colonoscopy 02/04/19 07:53:57 Preschool Director: [email or web address] Modifier: [email or web address] <+> 1 Time In [...] Endo - Case Times Audit 02/04/19 08:31:33 Preschool Director: BRETT Modifier: [email or web address] <+> 1 Out Room Time <+> 1 Stop Time <+> 1 Stop Time 02/04/19 08:08:05 Preschool Director: BRETT Modifier: [email or web address] <+> 1 Start Time [facility] [...] 02/04/19 07:52:22 [facility] - General Case Medical Recruiter 1 Case Information OR Endo 04 [facility] Case Level 1 Room Verified Yes Wound Class III - Contaminated Specialty SN Gastroenterology Anesthesia Type MAC ASA Class 3 Diagnosis Preop Diagnosis SCREENING Postop Same As Preop No Postop Diagnosis POLYPS,HEMORRHOIDS Last Modified By: Leigh Coyle RN 02/04/19 08:31:57 [facility] [place] - General Case Data Audit 02/04/19 08:31:57 Preschool Director: BRETT Modifier: [email or web address] <+> 1 Postop Diagnosis 02/04/19 08:07:15 Preschool Director: [email or web address] Modifier: [email or web address] 1 <+> Postop Same As Preop 1 <*> Preop Diagnosis SCREENING 02/04/19 07:56:34 Preschool Director: [email or web address] Modifier: [email or web address] 1 <+> ASA Class [...] Modified By: Leigh Coyle RN 02/04/19 07:37:32 [facility] - Intraoperative Equipment Audit 02/04/19 07:37:32 Preschool Director: RAINALYSIASaul Modifier: [email or web address] <+> 1 Photo <+> 1 Video <+> 1 Blood Pressure Location <+> 1 Pulse Oximeter Probe Site <+> 1 Flexible Endoscopes Used <+> 1 Scope Serial Number/Identification Number [facility] [place] - Patient Positioning Entry 1 Entry [...] Endo - Patient Positioning Audit 02/04/19 08:32:57 Preschool Director: BRETT Modifier: [email or web address] 1 <*> Procedure Colonoscopy 2 <*> Procedure Colonoscopy 02/04/19 08:32:19 Preschool Director: [email or web address] Modifier: [email or web address] <+> 2 Body Position [...] Modified By: Leigh Coyle RN 02/04/19 08:32:07 [facility] - Surgical Procedures Entry 1 Entry [...] Hamlin, Sherri, RN 02/04/19 08:32:11 02/04/19 08:32:53 [facility] [place] - Surgical Procedures Audit 02/04/19 08:32:53 Preschool Director: [email or web address] Modifier: [email or web address] <+> 2 Procedure <+> 2 Primary Procedure <+> 2 Primary Surgeon <+> 2 Specialty <+> 2 Start <+> 2 Stop <+> 2 Wound Class <+> 2 Anesthesia Type <+> 2 Physician States Cecum Reached 02/04/19 08:32:11 Preschool Director: [email or web address] Modifier: [email or web address] <+> 1 Stop 02/04/19 08:31:10 Preschool Director: [email or web address] Modifier: [email or web address] 1 <*> Procedure Colonoscopy 1 <+> Physician States Cecum Reached 02/04/19 08:10:39 Preschool Director: [email or web address] Modifier: [email or web address] <+> 1 Start [facility] [place] - Time Out Entry 1 Procedure [...] Modified By: Leigh Coyle RN 02/04/19 08:32:57 E Endo - Time Out Audit 02/04/19 08:32:57 Preschool Director: [email or web address] Modifier: [email or web address] 1 <*> Procedure to be Performed Colonoscopy Case Comments <None> Finalized By: Leigh Coyle, RN Document Signatures Signed By: Leigh Coyle RN 02/04/19 08:34 Electronically signed by Braulio [facility] Conversion Meat Cutting Teacher Cerner at 12/04/2022 4:37 PM CDT documented in this encounter Plan of Treatment Not on file documented as of this encounter Visit Diagnoses Not on filedocumented in this encounter Care Teams Ethanol Quality Leader Relationship Specialty Start Date End Date Scott Main MD [address] [place] [address] PCP - General Family Medicine 03/29/24 documented as of this encounter
--- OUTSIDE RECORDS SUMMARY | 2025-07-20 14:13 | XMS_ITS | Data Portability ---
Author Organization KECIA ROSANA [facility]ordero [place] [facility] Address [address] [place] [address] Care Team Providers Care Health Science Instructor Name Role Phone TABBY AZUL Infectious Disease [phone] BHUPINDER CRUZ Primary Care Provider [phone] Assessment Encounter Date Assessment Date Assessment LastModified by Organization Details LastModified Time 04/08/2024 04/08/2024 78-year-old female with a history of diabetes and remote history of UTI. She was admitted at [facility] for UTI, bacteremia, and CT scan [...] Levaquin. Schedule left ureteroscopy and stent removal. [facility] Not available 04/08/2024 18:53:11 06/04/2024 06/04/2024 SURGERY [...] history of UTI. She was admitted at [facility] for UTI, bacteremia, and CT scan [...] correct patient and procedures and side. A 22-Omani cystoscope was placed per urethra into the [...] history of UTI. She was admitted at [facility] for UTI, bacteremia, and CT scan showing left hydronephrosis possibly from a passed stone. She underwent cystoscopy and left stent placement 03/2024 followed by left stent removal and left diagnostic ureteroscopy 05/2024, no stone was seen. She feels well after left stent removal and ureteroscopy last month. The UA is negative. I recommend checking BMP. Plan: Check BMP. Follow-up as needed. faith Not available 07/02/2024 14:09:59 Plan of Treatment Reminders Order Date Submit Date Provider Last Modified By Organization Details Last Modified Time Details Appointments None recorded. Lab BMP, serum or plasma 2023 [facility], [address] [place], [address], 4 17:50:21 urinalysis panel, auto 2023 024 faith [facility] [address], [facility], [place], [address], 11:46:20 urinalysis panel, auto 2023 024 dlig Not available 08:38:01 Referral None recorded. Procedures None recorded. Surgeries None recorded. Imaging XR, knee, 4 or more view - Short 2, return short 2 2021 [email or web address] Not available 13:59:15 Medication Orders diclofenac 1 % topical gel 2021 022 [facility], [address] [place], [address], 13:29:13 Patient TargetsNo targets recorded. Patient Instructions Encounter Date Encounter Id Patient Instructions Last Modified By Organization Details Last Modified Time 07/03/2022 [id number] knee arthritis: exercises [email or web address] Not available 07/03/2022 13:28:52 Reason for Referral None Reported. Results Created Date Observation Date Name Description Value Unit Range Abnormal Flag Note LastModifiedBy Organization Detail LastModifiedTime 04/08/20 24 04/08/2024 urina lysis panel , auto Unknown Analyte Clean Catch Not Available [facility] [address] [place], [address], 04/08/2024 08:17:42 04/08/20 24 04/08/2024 urina lysis panel , auto Unknown Analyte Yellow Not Available [facility] [address], [address], 04/08/2024 08:17:42 04/08/20 24 04/08/2024 urina lysis panel , auto Unknown Analyte Clear Not Available [facility] [address], [address], 04/08/2024 08:17:42 04/08/20 24 04/08/2024 urina lysis panel , auto Unknown Analyte 1.010 Not Available [facility] [address], [address], 04/08/2024 08:17:42 04/08/20 24 04/08/2024 urina lysis panel , auto Unknown Analyte 5.0 Not Available [facility] [address], [address], 04/08/2024 08:17:42 04/08/20 24 04/08/2024 urina lysis panel , auto Unknown Analyte 25 Pat/ul Trace Not Available [address], [address], 04/08/2024 08:17:42 04/08/20 24 04/08/2024 urina lysis panel , auto Unknown Analyte Negati ve Not Available [address], [address], 04/08/2024 08:17:42 04/08/20 24 04/08/2024 urina lysis panel , auto Unknown Analyte 30 mg/dl (+) Not Available [address], [address], 04/08/2024 08:17:42 04/08/20 24 04/08/2024 urina lysis panel , auto Unknown Analyte >1000 mg/dl Not Available [facility] [address] [place], [address], 04/08/2024 08:17:42 04/08/20 24 04/08/2024 urina lysis panel , auto Unknown Analyte Negati ve Not Available [facility] [address] [place], [address], 04/08/2024 08:17:42 04/08/20 24 04/08/2024 urina lysis panel , auto Unknown Analyte Normal Not Available [facility] [address] [place], [address], 04/08/2024 08:17:42 04/08/20 24 04/08/2024 urina lysis panel , auto Unknown Analyte Negati ve Not Available [facility] [address] [place], [address], 04/08/2024 08:17:42 04/08/20 24 04/08/2024 urina lysis panel , auto Unknown Analyte 250 Ruiz/ul Not Available [facility] [address] [place], [address], 04/08/2024 08:17:42 06/04/20 24 06/04/2024 urina lysis panel , auto Unknown Analyte Clean Catch Not Available [facility] Surgery Schedule [address] [place], [address], 06/04/2024 12:44:26 06/04/20 24 06/04/2024 urina lysis panel , auto Unknown Analyte Yellow Not Available [facility] Surgery Schedule [address] [place], [address], 06/04/2024 12:44:26 06/04/20 24 06/04/2024 urina lysis panel , auto Unknown Analyte Clear Not Available [facility] Surgery Schedule [address] [place], [address], 06/04/2024 12:44:26 06/04/20 24 06/04/2024 urina lysis panel , auto Unknown Analyte 1.010 Not Available [facility] Surgery Schedule [address] [place], [address], 06/04/2024 12:44:26 06/04/20 24 06/04/2024 urina lysis panel , auto Unknown Analyte 1.003- 1.035 Not Available [facility] Surgery Schedule [address] [place] [address], [address], 06/04/2024 12:44:26 06/04/2006/04/2024 urina lysis panel , auto Unknown Analyte 6.0 Not Available [facility] Surgery Schedule [address] [place] [address], [address], 06/04/2024 12:44:26 06/04/2006/04/2024 urina lysis panel , auto Unknown Analyte 5.0-8. 0 Not Available [facility] Surgery Schedule [address] [place] [address], [address], 06/04/2024 12:44:26 06/04/2006/04/2024 urina lysis panel , auto Unknown Analyte 25 Pat/ul Trace Not Available [facility] Surgery Schedule [address] [place] [address], [address], 06/04/2024 12:44:26 06/04/2006/04/2024 urina lysis panel , auto Unknown Analyte Negati ve Not Available [facility] Surgery Schedule [address] [place] [address], [address], 06/04/2024 12:44:26 06/04/2006/04/2024 urina lysis panel , auto Unknown Analyte Negati ve Not Available [facility] Surgery Schedule [address] [place] [address], [address], 06/04/2024 12:44:26 06/04/2006/04/2024 urina lysis panel , auto Unknown Analyte Negati ve Not Available [facility] Surgery Schedule [address] [place], [address], 06/04/2024 12:44:26 06/04/20 24 06/04/2024 urina lysis panel , auto Unknown Analyte 30 mg/dl (+) Not Available [facility] Surgery Schedule [address] [place], [address], 06/04/2024 12:44:26 06/04/20 24 06/04/2024 urina lysis panel , auto Unknown Analyte Negati ve Not Available [facility] Surgery Schedule [address] [place], [address], 06/04/2024 12:44:26 06/04/20 24 06/04/2024 urina lysis panel , auto Unknown Analyte 250 mg/dl Not Available [facility] Surgery Schedule [address] [place], [address], 06/04/2024 12:44:26 06/04/20 24 06/04/2024 urina lysis panel , auto Unknown Analyte Normal Not Available [facility] Surgery Schedule [address] [place], [address], 06/04/2024 12:44:26 06/04/20 24 06/04/2024 urina lysis panel , auto Unknown Analyte Negati ve Not Available [facility] Surgery Schedule [address] [place], [address], 06/04/2024 12:44:26 06/04/20 24 06/04/2024 urina lysis panel , auto Unknown Analyte Negati ve Not Available [facility] Surgery Schedule [address] [place], [address], 06/04/2024 12:44:26 06/04/20 24 06/04/2024 urina lysis panel , auto Unknown Analyte Normal Not Available [facility] Surgery Schedule [address] [place], [address], 06/04/2024 12:44:26 06/04/20 24 06/04/2024 urina lysis panel , auto Unknown Analyte Normal 1 mg/dl Not Available [facility] Surgery Schedule [address] [place], [address], 06/04/2024 12:44:26 06/04/20 24 06/04/2024 urina lysis panel , auto Unknown Analyte Negati ve Not Available [facility] Surgery Schedule [address] [place], [address], 06/04/2024 12:44:26 06/04/20 24 06/04/2024 urina lysis panel , auto Unknown Analyte Negati ve Not Available [facility] Surgery Schedule [address] [place] [address], [address], 06/04/2024 12:44:26 06/04/20 24 06/04/2024 urina lysis panel , auto Unknown Analyte Negati ve Not Available [facility] Surgery Schedule [address] [place] [address], [address], 06/04/2024 12:44:26 06/04/20 24 06/04/2024 urina lysis panel , auto Unknown Analyte Negati ve Not Available [facility] Surgery Schedule [address] [place] [address], [address], 06/04/2024 12:44:26 07/02/20 24 07/02/2024 BASIC METAB OLIC PANEL glucose 298 mg/dL 74-100 high Not Available [facility] [address] [place] [address], [address], 07/02/2024 17:50:21 07/02/20 24 07/02/2024 BASIC METAB OLIC PANEL blood urea nitrogen 21 mg/dL 6-20 high Not Available [facility] [address] [place] [address], [address], 07/02/2024 17:50:21 07/02/20 24 07/02/2024 BASIC METAB OLIC PANEL creatinine 0.89 mg/dL 0.50-0 .95 normal Not Available [facility] [address] [place] [address], [address], 07/02/2024 17:50:21 07/02/20 24 07/02/2024 BASIC METAB OLIC PANEL BUN/creatini ne ratio 24 (calc ) 10-20 high Not Available [facility] [address] [place] [address], [address], 07/02/2024 17:50:21 07/02/20 24 07/02/2024 BASIC METAB OLIC PANEL sodium 134 mmol/ L 136-14 5 low Not Available [facility] [address] [place] [address], [address], 07/02/2024 17:50:21 07/02/20 24 07/02/2024 BASIC METAB OLIC PANEL potassium 4.7 mmol/ L 3.4-5. 0 normal Not Available [facility] [address] [place] [address], [address], 07/02/2024 17:50:21 07/02/20 24 07/02/2024 BASIC METAB OLIC PANEL chloride 100 mmol/ L 98-107 normal Not Available [facility] [address] [place] [address], [address], 07/02/2024 17:50:21 07/02/20 24 07/02/2024 BASIC METAB OLIC PANEL carbon dioxide 22 mmol/ L 22-31 normal Not Available [facility] [address] [place] [address], [address], 07/02/2024 17:50:21 07/02/20 24 07/02/2024 BASIC METAB OLIC PANEL anion gap 12 (calc ) 7-25 normal Not Available [facility] [address] [place] [address], [address], 07/02/2024 17:50:21 07/02/20 24 07/02/2024 BASIC METAB OLIC PANEL calcium 9.3 mg/dL 8.6-10 .2 normal Not Available [facility] [address] [place], [address], 07/02/2024 17:50:21 07/02/20 24 07/02/2024 BASIC METAB OLIC PANEL GFR 66 >= 60 normal NOT E New calcu latio n for GFR (CKD- EPI 2020) is formu lated witho ut race adjus tment facto rs at the recom menda tion of the [facility] ation and Ameri can Isadorae ty of Nephr ology . This calcu latio n has not been valid ated in pregn ant women . For pedia roland patie nts refer to https ://casandra gan.o thomas/pr devora shaffer s/KDO QI/gf r_cal culat orPed Not Available [facility] [address] [place], [address], 07/02/2024 17:50:21 07/02/20 24 07/02/2024 urina lysis panel , auto Unknown Analyte Clean Catch Not Available [facility] [address] [facility], [place], [address], 07/02/2024 11:24:05 07/02/20 24 07/02/2024 urina lysis panel , auto Unknown Analyte Yellow Not Available [facility] [address] [place], [address], 07/02/2024 11:24:05 07/02/20 24 07/02/2024 urina lysis panel , auto Unknown Analyte Clear Not Available [facility] [address] [place], [address], 07/02/2024 11:24:05 07/02/20 24 07/02/2024 urina lysis panel , auto Unknown Analyte 1.010 Not Available [facility] [address] [place], [address], 07/02/2024 11:24:05 07/02/20 24 07/02/2024 urina lysis panel , auto Unknown Analyte 5.0 Not Available [facility] [address] [facility], [place], [address], 07/02/2024 11:24:05 07/02/20 24 07/02/2024 urina lysis panel , auto Unknown Analyte Negati ve Not Available [facility] [address] [facility], [place], [address], 07/02/2024 11:24:05 07/02/20 24 07/02/2024 urina lysis panel , auto Unknown Analyte Negati ve Not Available [facility] [address] [facility], [place], [address], 07/02/2024 11:24:05 07/02/20 24 07/02/2024 urina lysis panel , auto Unknown Analyte Negati ve Not Available [facility] [address] [facility], [place], [address], 07/02/2024 11:24:05 07/02/20 24 07/02/2024 urina lysis panel , auto Unknown Analyte >1000 mg/dl Not Available [facility] [address] [facility], [place], [address], 07/02/2024 11:24:05 07/02/20 24 07/02/2024 urina lysis panel , auto Unknown Analyte Negati ve Not Available [facility] [address] [facility], [place], [address], 07/02/2024 11:24:05 07/02/20 24 07/02/2024 urina lysis panel , auto Unknown Analyte Normal Not Available [facility] [address] [facility], [place], [address], 07/02/2024 11:24:05 07/02/20 24 07/02/2024 urina lysis panel , auto Unknown Analyte Negati ve Not Available [facility] [address] [facility], [place], [address], 07/02/2024 11:24:05 07/02/20 24 07/02/2024 urina lysis panel , auto Unknown Analyte Negati ve Not Available [facility] [address] [facility], [place], [address], 07/02/2024 11:24:05 07/03/20 22 07/03/2022 XR, knee, 4 or more view [facility] [address] [facility] [place] [address] Dori garcia Name: JANETH garcia : 1944 Dori garcia 4 Orderi ng Provid er: CAMILLA MORRISON S EXAM DATE: 2021 EXAM: XR LT KNEE [...] in the left knee. Interp reted By: Moinca hernandes MD Electr onical ly Signed By: Monica hernandes MD on 2021 1:14 PM [email or web address] [facility] [place] [address] , [place], [address], 07/03/2022 14:23:06 07/09/02/25/2024 [facility]R, knee, 4 or [facility] [address] [place] [address] Dori garcia Name: JANETH garcia : 1944 Dori garcia 4 Orderi ng Provid er: CAMILLA Raymond EXAM DATE: 2023 EXAM: XR LT KNEE [...] MD on 02/25/20 24 1:44 PM [email or web address] [facility] [place] [address] , [place], [address], 02/26/2024 09:03:37 Result Notes Documentation Provider Name and Address Organization Details Recorded Time Xr, K[facility], 4 [facility] [address] [place] [address] Patient Name: JANETH VELASQUEZ Patient : 1945 Patient Ordering Provider: BRAYDEN EDWARDS EXAM DATE: 07/03/2022 EXAM: XR LT KNEE COMPLETE, 4 OR MORE VWS COMPARISON: None. HISTORY: Left knee pain. FINDINGS: No fracture is identified. There are severe degenerative changes in the left knee. There is near complete medial joint space loss. There is moderate to severe marginal spurring. Contralateral knee: There are moderate degenerative changes. IMPRESSION: 1. There are severe degenerative changes in the left knee. Interpreted By: Dom Kathleen MD DEN EDWARDS PA-C [address] [place], [address], [facility] 07/03/2022 14:23:06 Xr, Knee, 4 Or More View : [facility] [place] [address] [place] [address] Patient Name: JANETH VELASQUEZ Patient : 1945 Patient Ordering Provider: BRAYDEN EDWARDS EXAM DATE: 02/25/2024 EXAM: XR LT KNEE COMPLETE, 4 OR MORE VWS COMPARISON: 07/03/2022 HISTORY: Left knee pain. FINDINGS: No fracture is identified. There are severe degenerative changes in the left knee. There is near complete medial joint space loss. There is moderate to severe marginal spurring. Contralateral knee: There are moderate degenerative changes. IMPRESSION: 1. There are severe degenerative changes in the left knee. Interpreted By: Dom Kathleen MD DEN EDWARDS PA-C [address] [place], [address], [facility] 02/26/2024 09:03:37 Problems Name Problem SNOMED Code Status Onset Date Resolution Date Notes Provider Name and Address Organization Details Recorded Time Carpal tunnel syndrome 63125162 Active 2015 From [employer]ated [employer];Provi freeman: Jenifer, Chaitanya;St atus: Active Not Available [facility] 6 01:34:04 Problem Notes None recorded. Procedures Surgical History Date Name Laterality Status Provider Name and Address Organization Details Recorded Time 07/02/20 24 Post Void Residual; Ultrasound completed She Marlow [facility] 07/02/2024 11:29:05 06/04/20 24 Kidney Surgery completed CHAITANYA ALAMO MD [address] [place] [address], [address], [facility] 06/04/2024 13:31:49 03/31/20 24 Kidney Surgery completed CHAITANYA ALAMO MD [address] [place] [address], [address], [facility] 04/08/2024 18:53:50 02/25/20 24 Injection - Joint/Bursa, Major completed BRAYDEN EDWARDS PA-C [address] [place], [address], [facility] 02/25/2024 14:03:00 07/03/20 22 Injection - Joint/Bursa, Major completed BRAYDEN EDWARDS PA-C [address] [place], [address], [facility] 07/03/2022 13:45:20 06/17/20 17 Injection - Tendon Sheath/Ligament completed CHAITANYA SCHUSTER MD [address] [place], [address], [facility] 06/17/2017 10:30:27 Appendectomy completed [facility] 04/08/2024 08:16:01 procedure on gallbladder completed [facility] 04/08/2024 08:16:10 Imaging Results None recorded. Procedure Notes None recorded. Medical Equipment None Reported. Allergies Allergen ID Allergen Name Allergen Category Reaction Reaction Severity Criticality Documentation Date Start Date Code Code System Note Provider Name and Address Organization Details Recorded Time 792585 codeine medicatio n vomiting severe Not available 07/12/20162015 2670 RxNorm React ion: NAUSE A AND VOMIT ING;S everi ty: Dylan valencia; Comme nt: Dylan valencia--wilson s to go to the [facility] ;Crea guru By: Brooke garvey Date: 016 2:35: 26 PM; Not Available [facility] 6 11:16:11 Medications Name Sig Start [...] active Not Available Not Available Not Available Cresco 5 mg-325 mg tablet TAKE 1 TABLET [...] Not Available Vitals Date Recorded Body weight Pain severity - 0-10 verbal numeric rating [Score] - Reported Body mass index (BMI) Body height Provider Name and Address Organization Details Last Updated DateTime 02/25/2024 73207.26 g 10 24 kg/m2 167.64 cm [facility] 02/25/2024 13:41:21 Date Recorded Body mass index (BMI) Body weight Provider Name and Address Organization Details Last Updated DateTime 04/08/2024 24 kg/m2 66803.26 g Adán Govea [facility] 04/08/2024 08:15:14 Date Recorded Body height Provider Name an d Address Organization Details Last Updated DateTime 04/08/2024 167.64 cm Candice Velásquez [facility] 0 04/08/2024 07:54:42 Date Recorded Body height Body mass index (BMI) Body weight Provider Name and Address Organization Details Last Updated DateTime 07/02/2024 167.64 cm 24 kg/m2 02397.26 g She Marlow [facility] 07/02/2024 11:24:00 Date Recorded Body height Body mass index (BMI) Body weight Pain severity - 0-10 verbal numeric rating [Score] - Reported Provider Name and Address Organization Details Last Updated DateTime 07/03/2022 167.64 cm 25.5 kg/m2 90295.59 g Mery Guaman [facility] 07/03/2022 12:37:39 Social History Question Answer Notes LastModified by Organizat ion Details LastModified Time Tobacco Smoking Status Never Smoker Giovana Lares [facility] 12/04/2017 15:03:57 Accident Related Injury No [...] Of Your Most Recent Tobacco Screening? 04/08/2024 [email or web address] Information not available 04/08/2024 What Is Your Relationship Status? [email or web address] Information not available 04/08/2024 Has Tobacco Cessation Counseling Been Provided? No [email or web address] Information not available 04/08/2024 Work Related Injury? No Information not available 12/04/2017 Sex: Unknown Functional Status Question Answer Note LastModified by Organizat ion Details LastModified Time Do you use any illicit or recreational drugs? No Information not available 12/04/2017 Do you or have you ever used any other forms of tobacco or nicotine? No [email or web address] Information not available 04/08/2024 What is your level of alcohol consumption? None Information not available 12/04/2017 Are you currently employed? No Information not available 12/04/2017 Mental Status None recorded. Family History Relationship Description Onset Age of this Age Resolved Age Notes LastModified by Organization Details LastModified Time Unspecified Relation Diabetes mellitus [email or web address] Not available 2023 08:15:32 Medical History Condition Response Diabetes Y Urinary Tract Infection Y Arthritis Y Hypertension Y Gynecological HistoryNo gynecological history recorded. Obstetrics History GPAL:G 0 P 0 0 0 0 Past Encounters Encounter ID Performer Location Encounter Start Date Encounter Closed Date Diagnosis/Indication Diagnosis SNOMED-CT Code Diagnosis ICD10 Code Diagnosis IMO Codes Diagnosis Note [id number] CHAITANYA SCHUSTER MD [facility] [place] [facility] [address] [place] [place] [address] 06/17/2017 09:48:34 06/17/2017 11:30:33 Radial styloid tenosynovitis 01997431 M65.4 Injection left First dorsal compartmen t, follow-up as needed or call to schedule release [id number] CHAITANYA SCHUSTER MD [facility]THOPEDI [facility] [place] [facility] [address] [place] [address] 12/04/2017 14:35:45 12/04/2017 16:25:34 Radial styloid tenosynovitis 25069441 M65.4 Transient relief only with injection, recommend release first dorsal compartmen t [id number] CHAITANYA SCHUSTER MD SURGERY SCHEDULE [address] [place] [address] 12/12/2017 06:58:45 12/12/2017 06:59:10 [id number] JHON LEONE PA-C [facility] [address] [place] [address] 12/25/2017 10:04:33 12/25/2017 10:21:03 Radial styloid tenosynovitis 82123660 M65.4 doing well status post release of the left first dorsal compartmen t. [id number] BRAYDEN EDWARDS PA-C [facility] [place] [facility] [address] [address] 07/03/2022 12:25:23 07/03/2022 13:38:48 Pain of left knee joint 6126064962 17454 M25.562 Osteoarthr itis of left knee joint 1047172140 59261 M17.12 ASSESSMENT : DJD LEFT knee PLAN:We [...] further options based on improvemen t from [facility] [id number] BRAYDEN EDWARDS PA-C [facility] [place] [facility] [address] [place] [address] 02/25/2024 12:58:03 02/25/2024 14:58:34 Osteoarthritis of left knee joint 9366311305 40063 M17.12 ASSESSMENT : DJD LEFT knee PLAN:We [...] and wished to proceed with the injection. [id number] CHAITANYA ALAMO MD UROLOGY [facility] [address] [place] [address] 04/08/2024 07:44:28 04/09/2024 04:49:10 Hydronephrosis 27756408 N13.30 Acute urin leilani tract infection 219788376 N39.0 Urinary ca theter in situ 646269477 Z96.0 Bacteremia 6479847 R78.8 1 [id number] CHAITANYA ALAMO MD SURGERY SCHEDULE [address] [id number] 06/04/2024 11:50:41 06/04/2024 11:51:30 [id number] CHAITANYA ALAMO MD UROLOGY [facility] [address] [facility] [address] 07/02/2024 10:36:02 07/02/2024 11:55:28 Hydronephrosis 84997989 N13.30 History of urinary tract infection [id number] 107 Z87.440 Type 2 cierra betes mellitus without complication [id number] E11.9 Health Concerns Section Related Observation LastModified by Organization Detai ls LastModified Time None Recorded Concern Status LastModified by Organization Details LastModified Time None Recorded Advance Directives Directive None Recorded Payers Insurance Date Sequence Insurance Name Policy Number Policy Lujan Covered Member ID Lujan Member ID Guarantor Name 01/08/2018 2 UNSPECIFIED REMIT PAYOR Janeth Velasquez 01/28/2018 2 UNSPECIFIED REMIT PAYOR Janeth Velasquez 07/07/2024 2 [place] [id number] Janeth Velasquez [id number] Janeth Velasquez 07/02/2024 1 [place] Janeth Velasquez [id number] Janeth Velasquez Notes Date Note Type [...] Prior treatment:[facility]: [facility]Narcotic medication: no Dose: Prescriber:Steroid injections: no relief. Date of last inj:Viscosupplementation: no relief. Date of last inj:PT: No Location: When: Focus: Benefit: no relief.Braces: noAmbulatory aids/assistive device: nonePrior surgery on knee: none BRAYDEN EDWARDS PA-C [address] [place], [address], [facility] 07/03/2022 13:45:29 4 text/html ROS as noted in the HPI Patient comes in today for FU Left Knee.Patient states they are worse than last visit. Per pt gives out more x1-2 months, takes tylenol arthritis and advil prn BRAYDEN EDWARDS PA-C [address] [place], [address], [facility] 02/25/2024 14:03:19 4 text/html Diagnoses: Left hydronephrosis, UTI, urosepsis 78-year-old white female G1, P1. She has not had a hysterectomy. She has a history of left hydronephrosis, possible stone, UTI, and bacteremia. She presented to the [facility] emergency room with left renal colic. A CT scan with contrast showed mild left hydronephrosis, significant left perinephric stranding, and possible soft tissue at the left UVJ. She was thought to have possibly passed a stone. She was transferred to [facility] and was seen by Jaelyn Post [...] malignancy. She is retired. She worked at [employer] HPI: The patient is here with her Brayan for hospital follow-up. She is tolerating the stent well. She denies flank or abdominal pain. She has some urgency. She feels tired. CHAITANYA ALAMO MD [address] [place] [address], [id number], [facility] 04/08/2024 18:54:18 4 text/html Diagnoses: Left hydronephrosis, UTI, urosepsis 78 year-old white female G1, P1. She has not had a hysterectomy. She has a remote history of UTI. She has a history of left hydronephrosis, possible stone, UTI, and bacteremia 03/2024. She presented to the [facility] emergency room with left renal colic. A CT scan with contrast showed mild left hydronephrosis, significant left perinephric stranding, and possible soft tissue at the left UVJ. She was thought to have possibly passed a stone. She was transferred to [facility] and was seen by Jaelyn Pots APRN and Tabby Azul MD with infectious [...] malignancy. She is retired. She worked at [employer] HPI: The patient is here for follow-up after left stent removal and ureteroscopy last month. She feels well other than low energy. She voids well. She denies dysuria, frequency, urgency, or flank pain. CHAITANYA ALAMO MD [address] [place] [address], [phone], [facility] 07/02/2024 14:10:34 OBGyn Episode No OBEpisode recorded.
--- OUTSIDE RECORDS SUMMARY | 2025-07-20 14:13 | XMS_ITS | Clinical Summary ---
Author Organization [employer] ([place], [place], [place], [place], [place]) Address [address] [place] [address] Care Team Providers Care Visitor Information Assistant Name Role Phone Scott Main MD Primary Care Provider [phone] Allergies Active Allergy Reactions Criticality Noted Date [...] your living situation today? I have a [facility] place to live 03/29/2024 Think about the [...] Do you speak a language other than Bhutanese at ho ne? No 03/29/2024 Do you want help with [...] Evaluation (KED) 1945 Diabetic Eye Exam 1955 Depression Screening (12+) 1957 Pneumococcal 50+ years (1 of 2 - PCV) 1964 Shingles Vaccine (Zoster) (1 of 2) 1995 Medicare Initial AWV [id number] 05/20/2004 Respiratory Syncytial Virus (RSV) Adult or (1 - 1-dose 75+ series) 2020 Hemoglobin A1C 06/29/2024 03/29/2024 Falls Risk Screening 08/19/2024 Tobacco Cessation Counseling and Screening (12+) 03/2903/29/2024 COVID-19 VACCINE ( season) 2025 Influenza Vaccine (#1) 2025 DTAP/TDAP/TD VACCINES (2 - Td or Tdap) 06/04/2032 Medical Devices Implanted Type Area Sexual Assault Counsellor Device Identifier Shelf Expiration Date Model / Serial / Lot Stent Uret Percflx 6x24 .038 [id number] - [id number] Implanted:Qty : 1 on 03/31/2024 by Colton Alejandre Jr., MD at [facility] IMPLANTS Left: [employer]GYNE COLOGY 10/21/2026 [id number] / / [id number] Procedures Procedure Name Priority Date/Time Associated Diagnosis Comments HEMOGLOBIN A1C Add-On 03/29/2024 3:19 PM EDT from Last 3 Months or Most Recently Relevant to Health Maintenance Results * (ABNORMAL) Hemoglobin A1c (03/29/2024 3:19 PM EDT) Hemoglobin A1C 10.7(H) 4.2 - 6.3 % 03/29/2024 3:40 PM EDT [facility] Comment: Hemoglobin A1C levels are related to mean glucose during the preceding 2-3 months. Less than 7% demonstrates glycemic control in diabetic patients. Hemoglobin AlC % Suggested Diagnosis > or = 6.5 Diabetic 5.7 - 6.4 Prediabetic <5.7 Non-diabetic eAVG Glucose 260.39 mg/dL 03/29/2024 3:40 PM EDT [facility] Blood Venipuncture / Unknown 03/29/2024 3:19 PM EDT 03/29/2024 3:19 PM EDT us Fernando Fritz MD LAB BLOOD ORDERABLES Final R esult [facility] [address] [place] [address], [facility] [phone] from Last 3 Months or Most Recently Relevant to Health Maintenance Insurance MEDICARE PART A B SUPPL Advance Directives For more information, please contact: [phone] * Full Code (Latest Code Status on File) Date Activated Date Inactivated Comments 03/29/2024 1:17 PM 04/02/2024 6:02 PM Care Teams Visitor Information Assistant Relationship Specialty Start Date End Date Scott Main MD [address] [place] [address] [place] [address] PCP - General Family Medicine 03/29/24
== END 2025-07-19 23:59 | disposition home or self-care (01) ==
LOC: LAB.DROPOF 07-20 14:07
PROVIDERS: PCP Family Medicine; Visit Provider Nurse Practitioner Family
DX: N39.0 Urinary tract infection, site not specified (principal)
CPT/HCPCS: 87086; 87088; 87186